=== PATIENT | female | born 1955 | race Caucasian/White ===

== ENCOUNTER 2020-12-11 22:40 | Emergency (ER) | payer MEDICARE, MEDICAID, SELFPAY ==
[2020-12-11 22:41] VITALS: BP 148/99; PULSE 79; RESP 15; TEMP 36.6; O2SAT 98; BMI 26.9
[2020-12-11 22:45] VITALS: BP 154/99; PULSE 76; RESP 15; O2SAT 98
--- NOTE | 2020-12-11 23:02 | RAD_ITS ---
STUDY: X-RAY - RIGHT FOOT CLINICAL: Female, 65 years old. injury TECHNIQUE: 3 view(s) of the foot. COMPARISON: None. FINDINGS: Acute transverse to minimally oblique fracture of the distal second metatarsal neck, mid diaphyses of the third metatarsals, of the fourth metatarsal is. Minimal irregularity along the proximal second and third metatarsals is indeterminate. The tarsometatarsal articulation appear maintained. There is adjacent soft tissue swelling. Normal talus, calcaneus, and tarsal bones. Normal visualized subtalar, talonavicular, calcaneocuboid, tarsal and tarsometatarsal articulations. Otherwise normal metatarsi. Normal metatarsophalangeal joint of the great toe. Normal tibial and fibular sesamoid bones. Normal interphalangeal joint of the great toe. Normal phalanges of the great toe. Normal second through fifth metatarsophalangeal joints. Normal interphalangeal joints and phalanges of the lesser toes. RAD/Foot min 3 Views IMPRESSION: Possible fractures as above with soft tissue swelling. No tarsometatarsal dissociation detected. Electronically Signed: Bhavya Yin MD at 1:03 EDT , Service support ,
--- NOTE | 2020-12-11 23:39 | ED.RN ---
call made to obtain consent by legal guardian. no answer. message left on voicemail. implied consent used to treat patient. emili richardson rn [id number]
--- NOTE | 2020-12-11 23:56 | ED.VIS.GEN ---
History of Present Illness Chief Complaint: Lower Extremity Injury Informant: Patient, - - F staff Onset: Today Narrative: Patient states she woke this morning with right foot pain and swelling. She does not remember specific injury. Reportedly patient had an x-ray done at the [facility] that revealed multiple fractures. - Past Medical History (1) Benign hypertension Status: Chronic (2) Bipolar disorder Status: Chronic (3) Depression Status: Chronic (4) Gastroesophageal reflux disease Status: Chronic (5) Hypothyroidism Status: Chronic (6) Schizophrenia Status: Chronic Past Medical History - Allergies and Home Meds Allergies/Adverse Reactions: Allergies chlordiazepoxide HCl [From Librium] Allergy (Verified 12/11/20 22:44) Unknown divalproex sodium [From Depakote] Allergy (Verified 12/11/20 22:44) Unknown lithium Allergy (Verified 12/11/20 22:44) Unknown Penicillins Allergy (Verified 12/11/20 22:44) Unknown sulfamethoxazole [From Bactrim] Allergy (Verified 12/11/20 22:44) PT UNSURE OF REACTION trimethoprim [From Bactrim] Allergy (Verified 12/11/20 22:44) PT UNSURE OF REACTION Primary Care Physician: Thee Hugo MD [Primary Care Provider] - Prior records reviewed: Yes Surgical History: THYROIDECTOMY Lives: Shelter Smoking Status: Never smoker Review of Systems General: Denies: Chills, Fever Eyes: Denies: Visual changes - bilaterally ENT: Denies: Bilateral ear pain Cardiovascular: Denies: Chest pain Respiratory: Denies: Dyspnea, Cough Gastrointestinal: Denies: Abdominal pain Musculoskeletal: Reports: Swelling, Extremity Pain Neurological: Denies: Parasthesia Hematologic: Denies: Easy bruising, Easy bleeding Allergy: Denies: Uticaria Physical Exam Vital Signs/Narrative: Vital Signs Temp Pulse Resp BP Pulse Ox 12/11/20 22:45 76 15 154/99 H 98 12/11/20 22:41 97.9 F 79 15 148/99 H 98 Inital Vital Signs reviewed: Yes General: Well nourished, Well developed Head: Normocephalic Neck: Supple Cardiovascular: Regular rate, Regular rhythm Respiratory: No distress, CTA bilaterally Abdomen: Soft, Nontender Extremities: - - Right foot edema with minimal erythema. Mild diffuse tenderness. No open wounds noted. Strong pulses. Neurological: Alert, Oriented x3 Psychological: Normal affect Diagnostic/Tx/Re-eval - Medical Decision Making Right foot x-rays were repeated here. Patient has fractures of the second, third, and fourth metatarsals. Images are reviewed with Dr. George, podiatry. Patient is placed in a large posterior splint and advised to be nonweightbearing. Staff at bedside is aware of the plan. ED Disposition - Plan for ED Patient: Disposition: Home or Assisted Living Diagnosis: Foot fracture, right Instructions: ED Fracture, Foot Referrals: Mattie George DPM [STAFF PHYSICIAN] - 2 Days
[2020-12-12 00:11] VITALS: BP 124/66; PULSE 72; RESP 15; O2SAT 96
== END 2020-12-12 00:42 | disposition home or self-care (01) ==
PROVIDERS: Emergency Provider Emergency Medicine; PCP Family Medicine
DX: S92.321A Displaced fracture of second metatarsal bone, right foot, initial encounter for closed fracture (principal); S92.331A Displaced fracture of third metatarsal bone, right foot, initial encounter for closed fracture; S92.341A Displaced fracture of fourth metatarsal bone, right foot, initial encounter for closed fracture; X58.XXXA Exposure to other specified factors, initial encounter; Y93.9 Activity, unspecified; Y92.9 Unspecified place or not applicable; I10 Essential (primary) hypertension; E03.9 Hypothyroidism, unspecified; F20.9 Schizophrenia, unspecified; F31.9 Bipolar disorder, unspecified; K21.9 Gastro-esophageal reflux disease without esophagitis; Z79.899 Other long term (current) drug therapy
CPT/HCPCS: 29515; 73630; 99284

== ENCOUNTER → 2024-06-25 | Outpatient (CLI) | payer MEDICARE, MEDICAID, SELFPAY ==
[2024-07-01 01:07] LABS: Pancreatic Elastase, Fecal > 800 (>200)
[2024-07-02 08:13] LABS: Calprotectin, Stool 336 ug/g (0-120)
== END | disposition home or self-care (01) ==
LOC: LABSPEC 15:57
PROVIDERS: Student in an Organized Health Care Education/Training Program; PCP Family Medicine; Referring Provider Family Medicine; Visit Provider Family Medicine
DX: R11.2 Nausea with vomiting, unspecified (principal); R19.7 Diarrhea, unspecified
CPT/HCPCS: 82653; 83630; 83993

== ENCOUNTER → 2024-07-03 | Outpatient (CLI) | payer MEDICARE, MEDICAID, SELFPAY | END | disposition home or self-care (01) | LOC: RAD 08:45 | PROVIDERS: PCP Family Medicine; Referring Provider Student in an Organized Health Care Education/Training Program; Visit Provider Student in an Organized Health Care Education/Training Program | DX: R13.10 Dysphagia, unspecified (principal) | CPT/HCPCS: 74221 ==

== ENCOUNTER 2025-04-20 08:27 | Day surgery (SDC) | payer MEDICARE, MEDICAID, SELFPAY ==
--- NOTE | 2025-02-20 09:40 | PAT.ANE_ITS ---
Pre-Assessment Diagnosis/Proposed Procedure Planned Operative Procedure(s): COLONOSCOPY Anesthesia History Anesthesia History - collection specialist: Anesthesia History - collection specialist Hx Hospitalization No 02/20/25 08:08 Any Problems With Anesthesia No 02/20/25 08:08 Cholinesterase deficiency No 02/20/25 08:08 You/Your Family Experience No 02/20/25 08:08 fever (hyperthermia) with Relationship Recent Exposure to Contagious Disease Does patient have nerve No 02/20/25 08:08 stimulator Patient instructed to have device shut off --Does patient have Pacemaker or ICD? When Was Last Pacemaker Check QUESTION #4 FULL TEXT: You/Your Family Experience fever (hyperthermia) with Anesthesia Last Oral Intake Last Oral intake: Last Oral Intake NPO since Meds taken in AM with sips of water? Meds patient instructed to take am of surgery PONV PONV - collection specialist: PONV - collection specialist Female Yes 02/20/25 08:08 HX of Motion Sickness No 02/20/25 08:08 HX of N/V After Surgery No 02/20/25 08:08 Non-Smoker Yes 02/20/25 08:08 Duration of Surgery greater No 02/20/25 08:08 than 60 minutes Number of Risk Factors 2 02/20/25 08:08 PONV Score Moderate Risk 02/20/25 08:08 Respiratory Assessment Respiratory Assessment - collection specialist: Respiratory Tract Infection Hx - collection specialist Hx Respiratory Tract Infection No 02/20/25 08:08 STOP Sleep Apnea STOP Sleep Apnea - collection specialist: STOP Sleep Apnea - collection specialist Hx Hypertension No 02/20/25 08:08 Hx Sleep Apnea No 02/20/25 08:08 CPAP No 02/20/25 08:08 BIPAP No 02/20/25 08:08 Do you snore loudly (louder No 02/20/25 08:08 than talking or can be heard Do you often feel tired/ No 02/20/25 08:08 fatigued/ sleepy during daytime? Has anyone observed you stop No 02/20/25 08:08 breathing during sleep? STOP Results Negative 02/20/25 08:08 QUESTION #5 FULL TEXT : Do you snore loudly (louder than talking or can be heard through closed doors)? 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 Specify any problems Hx of Preganancy in last 3 No 02/20/25 08:08 Months Nurse Filling Out Transfusion DSCHRIBER 02/20/25 08:08 & Questions: Date: 02/20/25 02/20/25 08:08 Time: 08:14 02/20/25 08:08 Patient unable to answer at this time (ie. confused, unrespo /Reproduction History /Reproductive History - collection specialist: /Reproductive Hx- collection specialist Hx Now No 02/20/25 08:08 Gestational Age (in weeks): EDC: Hx Hx Para Hx Section SAB No 02/20/25 08:08 PFSH Medical History Arthritis Uses wheelchair Chronic pain Gastroparesis Migraine headache PVD (peripheral vascular disease) Injury of head and neck History of IBS Gastric reflux Non-smoker COPD (chronic obstructive pulmonary disease) Diabetes AD (Alzheimer's disease) Depression Anxiety Bipolar disorder Schizophrenia Alert and oriented Lives in [facility] Home Medications ?Medication ?Instructions ?Recorded ?Last Taken ?Type aspirin 81 mg chewable tablet 81 mg PO DAILY@0800 10/25 11/09 Unknown History Held on 02/20/25. Instructions: Ordered atorvastatin 20 mg tablet 20 mg PO QHS 11/07/15 Unknow n History duloxetine 60 mg capsule,delayed 60 mg PO QHS 11/07/15 Unknown History release ergocalciferol (vitamin D2) 1,250 50,000 unit PO WE Unknown History mcg (50,000 unit) capsule (Vitamin D2) lamotrigine 100 mg tablet 100 mg PO BID 11/07/15 Unkno wn History acetaminophen 650 mg 650 mg PO Q4H PRN PRN Pain 0 05/13/16 Unknown History tablet,extended release (Tylenol Arthritis Pain) bisacodyl 10 mg rectal suppository 10 mg RECTAL DAILY PRN PRN 05/13/16 Unknown History Constipation bisacodyl 5 mg tablet,delayed 5 mg PO DAILY CONSTIPATI ON 05/13/16 Unknown History release magnesium hydroxide 400 mg/5 mL 30 ml PO DAILY PRN PRN Constipation 05/13/16 Unknown History oral suspension amantadine HCl 100 mg tablet 100 mg PO BID 06/17/24 Un known History calcium polycarbophil 625 mg 625 mg PO QDAY 06/17/24 U nknown History tablet (FiberCon) Held on 02/20/25. Instructions: MD Ordered clozapine 100 mg tablet 100 mg PO HS 06/17/24 Unknow n History clozapine 50 mg tablet (Clozaril) 50 mg PO QAM 4 Unknown History d-mannose 500 mg capsule (AZO 600 mg PO DAILY 06/17/24 Unknown History D-Mannose) acetaminophen 325 mg tablet 650 mg PO Q6H 02/20/25 Unk nown History (Tactinal) clonazepam 0.5 mg tablet 0.5 mg PO TID 02/20/25 Unkno wn History nystatin-triamcinolone 100,000 1 applic topical Q12H P RN PRN 02/20/25 Unknown Hi story unit/g-0.1 % topical cream UNDER BREASTS olanzapine 15 mg tablet 15 mg PO QHS 02/20/25 Unknow n History ondansetron HCl 4 mg tablet 4 mg PO Q6H PRN PRN nausea and 02/20/25 Unknown H istory vomiting pantoprazole 40 mg tablet,delayed 40 mg PO DAILY 02/20 Unknown History release sennosides 8.6 mg-docusate sodium 2 tab-cap PO BID Unknown History 50 mg tablet (Senna Plus) sumatriptan succinate 25 mg tablet 50 mg PO Q2H PRN mi graine headache 02/20/25 Unknown History Allergy/AdvReac Type Severity Reaction Status Date / Time chlordiazepoxide HCl (From Allergy Unknown Verified 02/20/25 08:00 Librium) divalproex sodium (From Allergy Unknown Verified 02/20/25 08:00 Depakote) lithium Allergy Unknown Verified 02/20/25 08:00 Penicillins Allergy Unknown Verified 02/20/25 08:00 sulfamethoxazole (From Allergy PT UNSURE Verified 02/20/25 08:00 Bactrim) OF REACTION trimethoprim (From Bactrim) Allergy PT UNSURE Verified 02/20/25 08:00 OF REACTION Social History Smoking Status: Never smoker Recommendation Anesthesia Recommendation Anesthesia recommendation: F/U recommended (Unable to interpret EKG. Please repeat EKG on arrival.)
[2025-04-20] VITALS (8 sets, daily range): BP systolic 119–129; BP diastolic 58–91; PULSE 70–80; RESP 14–16; TEMP 36.1–36.5; O2SAT 94–100; BMI 31.5
--- NOTE | 2025-04-20 09:12 | PCM.HP.STD ---
HPI - General General Date of Admission: 04/20/25 Date of Service: 04/20/25 Chief Complaint: Diarrhea HPI Narrative ALEXUS PINTO, is a 69 F who presents w/ complaints of dysphagia for years and diarrhea. SHe is an unreliable historian. *discontinue senna and lactulose *Continue miralax and fiber Barium esophagram 11..24; normal OV 1..25 Pt presents here today for f/u. SHe is with [facility]. I am unable to get a clear hx from her and her mobile lounge driver is not familiar with her. SHe tells me she is not going to the bathroom as the toilets are talking to her and scaring her. She denies abd pain, diarrhea, n/v or heatburn. Calprotectin, Stool Today R19.7 - Diarrhea, unspecified PFSH Medical History Arthritis Uses wheelchair Chronic pain Gastroparesis Migraine headache PVD (peripheral vascular disease) Injury of head and neck History of IBS Gastric reflux Non-smoker COPD (chronic obstructive pulmonary disease) Diabetes AD (Alzheimer's disease) Depression Anxiety Bipolar disorder Schizophrenia Alert and oriented [facility] in [facility] Home Medications ?Medication ?Instructions ?Recorded ?Last Taken ?Type aspirin 81 mg chewable tablet 81 mg PO DAILY@0800 11/07/15 Unknown History Held on 02/20/25. Instructions: Ordered atorvastatin 20 mg tablet 20 mg PO QHS 11/07/15 Unknown History duloxetine 60 mg capsule,delayed 60 mg PO QHS 11/07/15 04/19/25 History release ergocalciferol (vitamin D2) 1,250 50,000 unit PO WE 11/07/15 Unknown History mcg (50,000 unit) capsule (Vitamin D2) lamotrigine 100 mg tablet 100 mg PO BID 11/07/15 04/20/25 History acetaminophen 650 mg 650 mg PO Q4H PRN PRN Pain 05/13/16 Unknown History tablet,extended release (Tylenol Arthritis Pain) bisacodyl 10 mg rectal suppository 10 mg RECTAL DAILY PRN PRN 05/13/16 Unknown History Constipation bisacodyl 5 mg tablet,delayed 5 mg PO DAILY CONSTIPATION 05/13/16 Unknown History release magnesium hydroxide 400 mg/5 mL 30 ml PO DAILY PRN PRN Constipation 05/13/16 Unknown History oral suspension amantadine HCl 100 mg tablet 100 mg PO BID 06/17/24 04/20/25 History calcium polycarbophil 625 mg 625 mg PO QDAY 06/17/24 Unknown History tablet (FiberCon) Held on 02/20/25. Instructions: MD Ordered clozapine 100 mg tablet 100 mg PO HS 06/17/24 04/19/25 History clozapine 50 mg tablet (Clozaril) 50 mg PO QAM 06/17/24 04/20/25 History d-mannose 500 mg capsule (AZO 600 mg PO DAILY 06/17/24 04/20/25 History D-Mannose) acetaminophen 325 mg tablet 650 mg PO Q6H 02/20/25 04/20/25 History (Tactinal) clonazepam 0.5 mg tablet 0.5 mg PO TID 02/20/25 04/20/25 History nystatin-triamcinolone 100,000 1 applic topical Q12H PRN PRN 02/20/25 Unknown History unit/g-0.1 % topical cream UNDER BREASTS olanzapine 15 mg tablet 15 mg PO QHS 02/20/25 04/19/25 History ondansetron HCl 4 mg tablet 4 mg PO Q6H PRN PRN nausea and 02/20/25 Unknown History vomiting pantoprazole 40 mg tablet,delayed 40 mg PO DAILY 02/20/25 04/20/25 History release sennosides 8.6 mg-docusate sodium 2 tab-cap PO BID 02/20/25 Unknown History 50 mg tablet (Senna Plus) sumatriptan succinate 25 mg tablet 50 mg PO Q2H PRN migraine headache 02/20/25 Unknown History Allergy/AdvReac Type Severity Reaction Status Date / Time chlordiazepoxide HCl (From Allergy Unknown Verified 04/20/25 09:00 Librium) divalproex sodium (From Allergy Unknown Verified 04/20/25 09:00 Depakote) lithium Allergy Unknown Verified 04/20/25 09:00 Penicillins Allergy Unknown Verified 04/20/25 09:00 sulfamethoxazole (From Allergy PT UNSURE Verified 04/20/25 09:00 Bactrim) OF REACTION trimethoprim (From Bactrim) Allergy PT UNSURE Verified 04/20/25 09:00 OF REACTION Social History Smoking Status: Never smoker ROS Constitutional Constitutional: Denies fatigue, fever(s), poor appetite, weight gain or weight loss Gastrointestinal Gastrointestinal: Denies belching, bloating, change in bowel habits, change in stool character, chewing difficulty, coffee ground emesis, constipation, cramping, diarrhea, dyspepsia, dysphagia, early satiety, excessive flatus, fecal incontinence, heartburn, hematemesis, hematochezia, hemorrhoids, loose stools, melena, nausea, odynophagia, rectal bleeding, tenesmus, vomiting or weight changes Vital Signs Vital Signs Vital Signs: 04/20/25 08:51 04/20/25 08:51 Temperature 97.7 F L Temperature Source Temporal Pulse Rate 80 Respiratory Rate 14 Respiratory Pattern Normal Blood Pressure 119/91 H Blood Pressure Mean 100 Blood Pressure Source Monitor Blood Pressure Position Semi-Fowlers Blood Pressure Location Left Arm Pulse Ox 94 Oxygen Delivery Method Room Air Weight Weight: 207 lb 3.752 oz Body Mass Index (BMI) 31.5 Physical Exam Const alert, oriented x3, no apparent distress and healthy appearing General Appearance: cooperative GI normal to inspection, nondistended, normoactive bowel sounds, soft to palpation, non-tender and non-distended Percussion: normal to percussion Rectal Exam: deferred Assessment & Plan Assessment/Plan (1) Diarrhea: (2) Gastroesophageal reflux disease: (3) Dysphagia: PLAN: Assessment and Plan Assessment and Plan (1) Abdominal symptoms: Status: Acute Plan: This is a 68 yo female pt with PMHx of schizophrenia, GERD, diarrhea, hypothyroidism and depression. SHe is here today for f/u. Barium esophagram was normal. Stool testing showing a high calprotectin. Pt is an unreliable historian and is unable to answer any of my questions regarding her GI symptoms. Will recheck her calprotectin. Continue current medications. Will call pt nurse at the [facility] to get a clear history. -Call pt nurse -Re check stool calprotectin -Continue current medications -F/u as needed Orders: Orders
[2025-04-20] MEDS: Lactated Ringers 1,000 ML 15 ML IV (09:14)
--- NOTE | 2025-04-20 09:18 | SUR.PREOP ---
DAINA WELCH ENDO CHARGE NURSE WAS ASKED BY THIS NURSE IF PATIENT WOULD NEED ENEMAS FROM DARK YELLOW LIQUID STOOL WITH SOME BROWN. SHE SAID NO PATIENT WOULD NOT BE ABLE TO HOLD THE WATER D/T CONFUSION.
--- OUTSIDE RECORDS SUMMARY | 2025-04-20 09:26 | XMS RPT_ITS | CCD ---
Author Organization [facility] Care Team Providers Care Film Vault Supervisor Name Role Phone PRISCILLA APODACA, DR SILVA S Primary Care Physician [phone] SHIRA WELLS Primary Care Unavailable LUCIANA UNDERWOOD DO Attending Unavailable STEPHY ABAD Unavailable Aminta Bedolla Attending Unavailable Aminta Bedolla Referring Unavailable Shira Wells Primary Care Unavailable Shira Wells Primary Care Unavailable Shira Wells Attending Unavailable Shira Wells Referring Unavailable Suresh Jolly Attending Unavailable Shira Wells Primary Care Unavailable Shira Wells Referring Unavailable Aminta Bedolla Attending Unavailable Shira Wells Primary Care Unavailable Shira Wells Primary Care Unavailable Aminta Bedolla Attending Unavailable Shira Wells Referring Unavailable Allergies Allergy Classification Reported Allergen(s) Allergy Type Date of Onset Reaction(s) Facility (1 source) chlordiazePOXIDE; Translations: [chlordiazepoxide] Drug Allergy [facility] (1 source) [place]; Translations: [lithium] Drug Allergy [facility] (1 source) Penicillin; Translations: [penicillin] Drug Allergy [facility] (1 source) Sulfamethoxazole / Trimethoprim; Translations: [sulfamethoxazole-tr imethoprim] Drug Allergy [facility] (1 source) Valproate; Translations: [divalproex sodium] Drug Allergy [facility] (1 source) chlordiazePOXIDE Drug Allergy [facility] (1 source) [place] Drug Allergy [facility] (1 source) Penicillins Drug allergy (disorder) [facility] (1 source) Sulfamethoxazole Drug Allergy [facility] (1 source) Trimethoprim Drug Allergy [facility] (1 source) Valproate Drug Allergy [facility] Problems Problem Classification Problem Date Documented Da te Episodic/Chronic Nausea and vomiting (1 source) Nausea with vomiting, unspecified; Translations: [Nausea with vomiting, unspecified] Onset: 08-04-2024 Episodic Other gastrointestinal disorders (1 source) Dysphagia, unspecified; Translations: [Dysphagia, unspecified] Onset: 08-04-2024 Episodic Other gastrointestinal disorders (1 source) Diarrhea, unspecified; Translations: [Diarrhea, unspecified] Onset: 07-18-2024 Episodic Results Test Name Value Interpretation Reference Range Facility MR/PAT.[facility] 02-20-2025 MR/PAT.[facility] Medical Records Department [address] [place] [address] PAT - Anesthesia 02/20/25 0940 MR#: [id number] Acct: [id number] Name: NINFA AIKEN Rep #: [id number] : 1955 69 From: Brian Mendes MD PCP: Dr. Shira Wells MD [place] [facility]: C Location: EN Pre-Assessment Diagnosis/Proposed Procedure Planned Operative Procedure(s): COLONOSCOPY Anesthesia History Anesthesia History - watch mechanic: Anesthesia History - watch mechanic Hx Hospitalization No 02/20/25 08:08 Any Problems With Anesthesia No 02/20/25 08:08 Cholinesterase deficiency No 02/20/25 08:08 You/Your Family Experience No 02/20/25 08:08 fever (hyperthermia) with Relationship Recent Exposure to Contagious Disease Does patient have nerve No 02/20/25 08:08 stimulator Patient instructed to have device shut off --Does patient have Pacemaker or ICD? When Was Last Pacemaker Check QUESTION #4 FULL TEXT: You/Your Family Experience fever (hyperthermia) with Anesthesia Last Oral Intake Last Oral intake: Last Oral Intake NPO since Meds taken in AM with sips of water? Meds patient instructed to take am of surgery PONV PONV - watch mechanic: PONV - watch mechanic Female Yes 02/20/25 08:08 HX of Motion Sickness No 02/20/25 08:08 HX of N/V After Surgery No 02/20/25 08:08 Non-Smoker Yes 02/20/25 08:08 Duration of Surgery greater No 02/20/25 08:08 than 60 minutes Number of Risk Factors 2 02/20/25 08:08 PONV Score Moderate Risk 02/20/25 08:08 Respiratory Assessment Respiratory Assessment - watch mechanic: Respiratory Tract Infection Hx - watch mechanic Hx Respiratory Tract Infection No 02/20/25 08:08 STOP Sleep Apnea STOP Sleep Apnea - watch mechanic: STOP Sleep Apnea - watch mechanic Hx Hypertension No 02/20/25 08:08 Hx Sleep Apnea No 02/20/25 08:08 CPAP No 02/20/25 08:08 BIPAP No 02/20/25 08:08 Do you snore loudly (louder No 02/20/25 08:08 than talking or can be heard Do you often feel tired/ No 02/20/25 08:08 fatigued/ sleepy during daytime? Has anyone observed you stop No 02/20/25 08:08 breathing during sleep? STOP Results Negative 02/20/25 08:08 QUESTION #5 FULL TEXT : Do you snore loudly (louder than talking or can be heard through closed doors)? Tobacco Use History Tobacco Use History - watch mechanic: Tobacco Use History - watch mechanic Tobacco Use Smoking Status Never smoker 02/20/25 08:08 Hx Tobacco Use No 02/20/25 08:08 Years Smoking Packs Smoked per Day Smoking Cessation Date was within the last 15 years Hx Smoking Cessation Date Hx Smoking Cessation Counseling Hematologic Medial History Hematologic Hx - watch mechanic: Hematologic Medical Hx - organ recovery coordinator Hx of Blood Transfusion No 02/20/25 08:08 Hx of Transfusion in last 3 No 02/20/25 08:08 Months Date of Last Transfusion (if within last 3 months) Ever experience any problems No 02/20/25 08:08 with transfusion(s)? Specify any problems Hx of Preganancy in last 3 No 02/20/25 08:08 Months Nurse Filling Out Transfusion DSCHRIBER 02/20/25 08:08 Questions: Date: 02/20/25 02/20/25 08:08 Time: 08:14 02/20/25 08:08 Patient unable to answer at this time (ie. confused, unrespo /Reproduction History /Reproductive History - watch mechanic: /Reproductive Hx- watch mechanic Hx Now No 02/20/25 08:08 Gestational Age (in weeks): EDC: Hx Hx Para Hx Section SAB No 02/20/25 08:08 PFSH Medical History Arthritis Uses wheelchair Chronic pain Gastroparesis Migraine headache PVD (peripheral vascular disease) Injury of head and neck History of IBS Gastric reflux Non-smoker COPD (chronic obstructive pulmonary disease) Diabetes AD (Alzheimer's disease) Depression Anxiety Bipolar disorder Schizophrenia Alert and oriented Lives in [facility] Home Medications ???Medication ???Instructions ???Recorded ???Last Taken ???Type aspirin 81 mg chewable tablet 81 mg PO DAILY@0800 11/07/15 Unkno wn History Held on 02/20/25. Instructions: MD Ordered atorvastatin 20 mg tablet 20 mg PO QHS 11/07/15 Unknown Hist ory duloxetine 60 mg capsule,delayed 60 mg PO QHS 11/07/15 Unknown Hist ory release ergocalciferol (vitamin D2) 1,250 50,000 unit PO WE 11/07/15 Unknow n History mcg (50,000 unit) capsule (Vitamin D2) lamotrigine 100 mg tablet 100 mg PO BID 11/07/15 Unknown His tory acetaminophen 650 mg 650 mg PO Q4H PRN PRN Pain 6 Unknown History tablet,extended release (Tylenol (more content not included)... [facility] Gastroenterology Visit Repor ton 09-19-2024 Gastroenterology Visit Report [facility] Gastroenterology [address] [place] [address] OFFICE VISIT Date of Service: 09/19/24 MR#: [id number] Acct: [id number] Name: NINFA AIKEN Rep #: [id number] : 1955 Provider: RAMESH Abbott Age/Sex: 68/F Location: [facility] [place] Status: Signed Intake Vital Signs 12/11/20 22:41 Height 5 ft 8 in Intake Visit Reasons: 3 M FU Chief Complaint: f/u n/v Is patient in pain?: No Allergies chlordiazepoxide HCl (From Librium) Allergy (Verified 06/17/24 10:47) Unknown divalproex sodium (From Depakote) Allergy (Verified 06/17/24 10:47) Unknown lithium Allergy (Verified 06/17/24 10:47) Unknown Penicillins Allergy (Verified 06/17/24 10:47) Unknown sulfamethoxazole (From Bactrim) Allergy (Verified 06/17/24 10:47) PT UNSURE OF REACTION trimethoprim (From Bactrim) Allergy (Verified 06/17/24 10:47) PT UNSURE OF REACTION Have you fallen in the past year?: Yes Nurse's Note: OV 09.19.24 Pt here for f/u. Pt c/o abdominal pain, diarrhea and nausea. PFSH Social History Smoking Status: Never smoker HPI HPI Chief Complaint: f/u n/v Details: NINFA AIKEN, is a 68 F who presents to the office today for f/u. [facility] established 06.17.24 w/ complaints of dysphagia for years and diarrhea. SHe is an unreliable historian. *discontinue senna and lactulose *Continue miralax and fiber Barium esophagram 07.03.24; normal OV 09.19.24 Pt presents here today for f/u. SHe is with her dray driver from the [facility]. I am unable to get a clear hx from her and her dray driver is not familiar with her. SHe tells me she is not going to the bathroom as the toilets are talking to her and scaring her. She denies abd pain, diarrhea, n/v or heatburn. ROS Const Constitutional: No anorexia, fatigue, fever(s), weight change or sleep problems Eyes Eyes: No change in vision ENT ENT: No abnormal hearing, difficulty swallowing, mouth lesions, tongue swelling or throat swelling Resp Respiratory: No cough or shortness of breath Cardio Cardiology: No chest pain at rest, chest pain with exertion, shortness of breath or dyspnea on exertion Gastro GI: No difficulty swallowing Genitourinary-Female: No difficulty urinating or burning urination Musc Musculoskeletal: No joint pain, joint swelling, muscle weakness or decreased muscle mass Skin Skin: No hair loss in leg, yellowing of the eye, itchy eyes, rash, skin ulcer or skin swelling Neuro Neurology: No abnormal hearing, abnormal movements, confusion, unsteady gait/balance or memory loss Psych Psychiatric: No anxiety, No confusion and No memory loss Endo Endocrine: No fatigue or weight change Aller/Imm Allergy/Immunologic: No itchy eyes, throat swelling or tongue swelling Edgard/Lymp Hematologic/Lymphatic: No easy bleeding, easy bruising or enlarged lymph nodes Exam Const General: cooperative and comfortable Nutritional Appearance: average body habitus and well nourished HENMT Head: normal to inspection Ears: hearing grossly normal bilaterally Nose: external nose normal Face and sinus: normal facial exam Mouth: oral mucosae normal Throat: posterior oropharynx normal Eyes General: appearance normal, both eyes and all related structures Neck Neck: normal visual inspection Chest Chest palpation inspection: normal inspection of the chest and normal palpation of entire chest wall Resp Effort Inspection: normal respiratory effort Auscultation: Bilateral: Clear to Auscultation Cardio Palpation: normal PMI Rate: regular rate Rhythm: regular rhythm GI Inspection: normal to inspection Auscultation: normal bowel sounds Percussion: normal to percussion Palpation: no hepatosplenomegaly Skin General: no rashes or lesions noted Neuro General: patient alert Extrem General: normal to inspection Psych Affect: normal affect Assessment and Plan Assessment and Plan (1) Abdominal symptoms: Status: Acute Plan: This is a 68 yo female pt with PMHx of schizophrenia, GERD, diarrhea, hypothyroidism and depression. SHe is here today for f/u. Barium esophagram was normal. Stool testing showing a high calprotectin. Pt is an unreliable historian and is unable to answer any of my questions regarding her GI symptoms. Will recheck her calprotectin. Continue current medications. Will call pt nurse at the [facility] to get a clear history. -Call pt nurse -Re check stool calprotectin -Continue current medications -F/u as needed Orders: Orders Calprotectin, Stool Today R19.7 - Diarrhea, unspecified Coding Level of Care Code Off vis,est,level 3 Diagnoses Abdominal symptoms R19.8 Clinical Quality Measures Falls Risk Screening/Assistive Devices Have you fallen in the past year?: Yes 09/19/24 1139 Date ____ (more content not included)... [facility] Esophagus Dual Contraston Esophagus Dual Contrast [facility] Imaging Services [address] [place] [address] Esophagus Dual Contrast MR#: [id number] Acct: [id number] Name: NINFA AIKEN Rep #: [id number] : 1955 F 68 From: Ricardo salazar MD PCP: Dr. Shira Wells MD Status: REG CLI Study: Esophagus Dual Contrast Date of Exam: 07/03/24 Exam# [id number] Ordering Dr: Aminta Bedolla [id number] STUDY: X-RAY - ESOPHAGUS (BARIUM SWALLOW) WITH FLUOROSCOPY REASON FOR EXAM: Female, 68 years old. Dysphagia TECHNIQUE: 53 fluoroscopic view(s) of the esophagus were obtained following swallowing of barium. FLUOROSCOPY TIME (if supplied): (36 seconds) minutes/seconds. 6 mGy. COMPARISON: None. FINDINGS: There is no demonstrated esophageal foreign body. There is no demonstrated stricture or mucosal abnormality. Normal gastroesophageal junction, without a demonstrated hiatal hernia. The patient ingested a 12 mm tablet of barium without any difficulty. There is atherosclerotic tortuosity of the aortic arch and descending thoracic aorta. Normal visualized pulmonary parenchyma. There are diffuse degenerative changes of the visualized thoracic spine. RAD/Esophagus Dual Contrast IMPRESSION: Normal plain film x-ray examination (barium swallow) of the esophagus. Electronically Signed: Ricardo Goff MD at 10:07 EST , CC: Dr. Shira Wells MD; RAMESH Abbott Letter Carrier: Signed [facility] Calprotectin, Stoolon [address] 336 ug/g Abnormal 0-120 [facility] Comment on above: Result Comment: Conc entration Interpretation Follow-Up < 5 - 50 ug/g Normal None >50 -120 ug/g Borderline Re-evaluate in 4-6 weeks >120 ug/g Abnormal Repeat as clinically indicated Performed at: [address] [id number] Batch Tester: Dot Clifton MD, Phone: [phone] Performed By: #### L 7000.0700, M100.0605, L7000.0750 #### [facility] [address] [place], [address] L7000.0750on 07-01-2024 P ELASTASE,FECA > 800 Normal >200 [facility] Comment on above: Result Comment: Resu lt Units: ug Elast./g Severe Pancreatic Insufficiency: <100 Moderate Pancreatic Insufficiency: 100 - 200 Normal: >200 Performed at: [address] [id number] Batch Tester: Dot Clifton MD, Phone: [phone] Performed By: #### L 7000.0700, M100.0605, L7000.0750 #### [facility] [address] [place], [address] Stool Lactoferrin/WBCon 05-29 WBCST Normal Reference Ran ge = Negative Fecal WBC Lactoferrin Negative: No Fecal WBC Lactoferrin present Normal [facility] Comment on above: Performed By: #### L 7000.0700, M100.0605, L7000.0750 #### [facility] [address] [place], [address] Gastroenterology Visit Repor ton 06-17-2024 Gastroenterology Visit Report [facility] Gastroenterology [address] [place] [address] OFFICE VISIT Date of Service: 06/17/24 MR#: [id number] Acct: [id number] Name: NINFA AIKEN Rep #: [id number] : 1955 Provider: RAMESH Abbott Age/Sex: 68/F Location: [facility] [place] Status: Signed Intake Vital Signs 12/11/20 22:41 Height 5 ft 8 in Intake Visit Reasons: Nausea/vomiting Chief Complaint: dysphagia, diarrhea, abdominal pain Drapery Hanger Required: No Accompanied by: Caregiver Allergies chlordiazepoxide HCl (From Librium) Allergy (Verified 06/17/24 10:47) Unknown divalproex sodium (From Depakote) Allergy (Verified 06/17/24 10:47) Unknown lithium Allergy (Verified 06/17/24 10:47) Unknown Penicillins Allergy (Verified 06/17/24 10:47) Unknown sulfamethoxazole (From Bactrim) Allergy (Verified 06/17/24 10:47) PT UNSURE OF REACTION trimethoprim (From Bactrim) Allergy (Verified 06/17/24 10:47) PT UNSURE OF REACTION Medications ???Medication ???Instructions ???Recorded ???Confirmed ???Type Nuedexta 1 tab PO DAILY 11/07/15 11/07/15 History alprazolam 0.5 mg tablet 0.5 mg PO TID 11/07/15 11/07/15 History aspirin 81 mg chewable tablet 81 mg PO DAILY@0800 11/07/15 06/17/24 History atorvastatin 20 mg tablet 20 mg PO QHS 11/07/15 05/13/16 History benztropine 2 mg tablet 1 mg PO TID 11/07/15 05/13/16 History carbamazepine 200 mg tablet 200 mg PO DAILY 11/07/15 11/07/15 History (Tegretol) cephalexin 500 mg capsule 500 mg PO Q6 ##40 11/07/15 Rx docusate sodium 100 mg capsule 200 mg PO BID 11/07/15 05/13/16 History (DOK) duloxetine 60 mg capsule,delayed 60 mg PO BID 11/07/15 06/17/24 History release ergocalciferol (vitamin D2) 1,250 50,000 unit PO Q7D 11/07/15 11/07/15 History mcg (50,000 unit) capsule (Vitamin D2) lamotrigine 100 mg tablet 100 mg PO BID 11/07/15 05/13/16 History multivitamin-minerals- lutein 1 ea PO DAILY 11/07/15 05/13/16 History tablet (Multivitamin 50 Plus tablet) olanzapine 10 mg tablet 5 mg PO Q6H PRN Agitation 11/07/15 11/07/15 History acetaminophen 650 mg 650 mg PO Q4H PRN PRN Pain 05/13/16 06/17/24 History tablet,extended release (Tylenol Arthritis Pain) bisacodyl 10 mg rectal suppository 10 mg RECTAL DAILY PRN PRN 05/13/16 06/17/24 History Constipation bisacodyl 5 mg tablet,delayed 5 mg PO DAILY CONSTIPATION 05/13/16 05/13/16 History release carbamazepine 200 mg tablet 200 mg PO DAILY 05/13/16 05/13/16 History cyclobenzaprine 10 mg tablet 10 mg PO QHS PRN PRN Pain 05/13/16 05/13/16 History diphenhydramine HCl 25 mg capsule 25 mg PO Q6H PRN PRN Rash/Topical 05/13/16 05/13/16 History (Banophen) Irritation ferrous sulfate 325 mg (65 mg 325 mg PO DAILY@0800 ANEMIA 05/13/16 05/13/16 History iron) tablet fluticasone propionate 50 1 spray DAILY PRN Allergies 05/13/16 05/13/16 History mcg/actuation nasal spray,suspension guaifenesin 400 mg tablet (Tab 400 mg PO Q8H PRN PRN Cold Symptons 05/13/16 05/13/16 History Tussin) hydrocodone-acetaminop hen 5-325mg 1 tab PO TID 05/13/16 05/13/16 History 5mg-325mg ibuprofen 400 mg tablet 400 mg PO BID PRN PRN Pain 05/13/16 05/13/16 History loratadine 10 mg tablet (Allergy 10 mg PO DAILY PRN Allergies 05/13/16 05/13/16 History Relief (loratadine)) magnesium hydroxide 400 mg/5 mL 30 ml PO DAILY PRN PRN Constipation 05/13/16 05/13/16 History oral suspension olanzapine 7.5 mg tablet (Zyprexa) 7.5 mg PO BID 05/13/16 05/13/16 History amantadine HCl 100 mg tablet 100 mg PO BID 06/17/24 06/17/24 History calcium polycarbophil 625 mg 625 mg PO QDAY 06/17/24 06/17/24 History tablet (FiberCon) clozapine 100 mg tablet 100 mg PO HS 06/17/24 06/17/24 History clozapine 50 mg tablet (Clozaril) 50 mg PO QAM 06/17/24 06/17/24 History d-mannose 500 mg capsule (AZO mg PO .QD 06/17/24 06/17/24 History D-Mannose) duloxetine 60 mg capsule,delayed 60 mg PO QHS 06/17/24 06/17/24 History release (Cymbalta) Have you fallen in the past year?: Yes Nurse's Note: spicy foods make is happen. This happens about every other day after she eats. She feels it burn all the way down. Has diarrhea and constipation regularly. PFSH Social History Smoking Status: Never smoker HPI HPI Chief Complaint: dysphagia, diarrhea, abdominal pain Details: NINAF AIKEN, is a 68 F who presents to the office today for establishment with [facility]. Pt is a resident at [facility] and is brought in with her WASHING MACHINE LOADER AND PULLER. She is not a reliable historian. She tells me she has had problems with swallowing for years now with dysphagia to both solids and liquids. She vomits at least once a week after eating. She also has heartburn. She tells me that Protonix has been helpful. SHe has never had an EGD to assess this. She also has complaints of daily d (more content not included)... Normal [facility] .Auto Diffon 04-07-2023 Basophil, Absolute 0.0 10 3/mcL Normal 0.0-0.2 [facility] ([place]) Comment on above: Performed By: #### M DW, CBC, GFR, TROPHS, CMP, LIP, ANEU, ADIFF #### [address] [address] Basophils/100 WBC (Bld) 0.3 % Normal 0.0-2.5 [facility] ([place]) Comment on above: Performed By: #### M DW, CBC, GFR, TROPHS, CMP, LIP, ANEU, ADIFF #### [place] [address] [place], [place] [address] Eosinophil, Absolute 0.1 10 3/mcL Normal 0.0-0.4 [facility] ([place]) Comment on above: Performed By: #### M DW, CBC, GFR, TROPHS, CMP, LIP, ANEU, ADIFF #### [address] [address] Eosinophils/100 WBC (Bld) 0.9 % Normal 0.0-7.0 [facility] ([place]) Comment on above: Performed By: #### M DW, CBC, GFR, TROPHS, CMP, LIP, ANEU, ADIFF #### [address] [address] Lymphocyte, Absolute 1.2 10 3/mcL Normal 0.8-3.9 [facility] ([place]) Comment on above: Performed By: #### M DW, CBC, GFR, TROPHS, CMP, LIP, ANEU, ADIFF #### [address] [address] Lymphocytes/100 WBC (Bld) 18.9 % Normal 10.0-50.0 [facility] ([place]) Comment on above: Performed By: #### M DW, CBC, GFR, TROPHS, CMP, LIP, ANEU, ADIFF #### [address] [address] Monocyte, Absolute 1.0 10 3/mcL Normal 0.2-1.0 [facility] ([place]) Comment on above: Performed By: #### M DW, CBC, GFR, TROPHS, CMP, LIP, ANEU, ADIFF #### [address] [address] Monocytes/100 WBC (Bld) 15.1 % High 1.7-13.0 [facility] ([place]) Comment on above: Performed By: #### M DW, CBC, GFR, TROPHS, CMP, LIP, ANEU, ADIFF #### [address] [address] Neutrophils/100 WBC (Bld) 64.8 % Normal 37.0-80.0 [facility] ([place]) Comment on above: Performed By: #### M DW, CBC, GFR, TROPHS, CMP, LIP, ANEU, ADIFF #### [address] [address] .GFRon 04-07-2023 GFR 64 ml/min/1.73sqm Normal [facility] ([place]) Comment on above: Result Comment: GFR Population mean for , Non- Americans Ages 20-29 = 116 mL/min/1.73 sq.m. Ages 30-39 = 107 mL/min/1.73 sq.m. Ages 40-49 = 99 mL/min/1.73 sq.m. Ages 50-59 = 93 mL/min/1.73 sq.m. Ages 60-69 = 85 mL/min/1.73 sq.m. Ages 70+ = 75 mL/min/1.73 sq.m. Chronic Kidney Disease: Less than 60 mL/min/1.73 square meters End Stage Renal Disease: Less than 15 mL/min/1.73 square meters Performed By: #### M DW, CBC, GFR, TROPHS, CMP, LIP, ANEU, ADIFF #### [address] [address] GFR Non- 53 ml/min/1.73sqm Normal [facility] ([place]) Comment on above: Result Comment: GFR Population mean for , Non- Americans Ages 20-29 = 116 mL/min/1.73 sq.m. Ages 30-39 = 107 mL/min/1.73 sq.m. Ages 40-49 = 99 mL/min/1.73 sq.m. Ages 50-59 = 93 mL/min/1.73 sq.m. Ages 60-69 = 85 mL/min/1.73 sq.m. Ages 70+ = 75 mL/min/1.73 sq.m. Chronic Kidney Disease: Less than 60 mL/min/1.73 square meters End Stage Renal Disease: Less than 15 mL/min/1.73 square meters Performed By: #### M DW, CBC, GFR, TROPHS, CMP, LIP, ANEU, ADIFF #### [address] [address] .MDWon 04-07-2023 Monocyte Distribution Width 29.76 High 0.00-20.00 [facility] ([place]) Comment on above: Result Comment: For adults in ED, MDW>20.0 may be associated with a higher risk of sepsis during the first 12hrs of hospital admission Performed By: #### M DW, CBC, GFR, TROPHS, CMP, LIP, ANEU, ADIFF #### [address] [address] .NEUABSon 04-07-2023 Neutrophil, Absolute 4.2 10 3/mcL Normal 2.9-6.2 [facility] ([place]) Comment on above: Performed By: #### M DW, CBC, GFR, TROPHS, CMP, LIP, ANEU, ADIFF #### [place] [address] CBCon 04-07-2023 Erythrocyte distribution width (RBC) [Ratio] 13.4 % Normal 11.5-14.5 [facility] ([place]) Comment on above: Performed By: #### M DW, CBC, GFR, TROPHS, CMP, LIP, ANEU, ADIFF #### [place] [address] Hematocrit (Bld) [Volume fraction] 43.4 % Normal 37.0-47.0 [facility] ([place]) Comment on above: Performed By: #### M DW, CBC, GFR, TROPHS, CMP, LIP, ANEU, ADIFF #### [place] [address] Hgb 14.6 G/dL Normal 12.0-16.0 [facility] ([place]) Comment on above: Performed By: #### M DW, CBC, GFR, TROPHS, CMP, LIP, ANEU, ADIFF #### [place] [address] MCH (RBC) [Entitic mass] 31.3 pg High 27.0-31.2 [facility] ([place]) Comment on above: Performed By: #### M DW, CBC, GFR, TROPHS, CMP, LIP, ANEU, ADIFF #### [place] [address] MCHC 33.5 G/dL Normal 33.0-37.0 [facility] ([place]) Comment on above: Performed By: #### M DW, CBC, GFR, TROPHS, CMP, LIP, ANEU, ADIFF #### [address] [address] MCV (RBC) [Entitic vol] 93.2 fL Normal 80.0-94.0 [facility] ([place]) Comment on above: Performed By: #### M DW, CBC, GFR, TROPHS, CMP, LIP, ANEU, ADIFF #### [address] [address] Platelet 305 10 3/mcL Normal 130-400 [facility] ([place]) Comment on above: Performed By: #### M DW, CBC, GFR, TROPHS, CMP, LIP, ANEU, ADIFF #### [address] [address] Platelet mean volume (Bld) [Entitic vol] 7.2 fL Low 7.4-10.4 [facility] ([place]) Comment on above: Performed By: #### M DW, CBC, GFR, TROPHS, CMP, LIP, ANEU, ADIFF #### [address] [address] RBC 4.66 10 6/mcL Normal 4.20-5.40 [facility] ([place]) Comment on above: Performed By: #### M DW, CBC, GFR, TROPHS, CMP, LIP, ANEU, ADIFF #### [address] [address] WBC 6.5 10 3/mcL Normal 4.6-10.8 [facility] ([place]) Comment on above: Performed By: #### M DW, CBC, GFR, TROPHS, CMP, LIP, ANEU, ADIFF #### [address] [address] CMPon 04-07-2023 Albumin Level 3.5 G/dL Normal 3.4-4.8 [facility] ([place]) Comment on above: Performed By: #### M DW, CBC, GFR, TROPHS, CMP, LIP, ANEU, ADIFF #### [address] [address] Albumin/Globulin [Mass ratio] 0.9 {ratio} Low 1.1-2.5 [facility] ([place]) Comment on above: Performed By: #### M DW, CBC, GFR, TROPHS, CMP, LIP, ANEU, ADIFF #### [address] [address] ALP [Catalytic activity/Vol] 139 U/L High 40-135 [facility] ([place]) Comment on above: Performed By: #### M DW, CBC, GFR, TROPHS, CMP, LIP, ANEU, ADIFF #### [address] [address] ALT [Catalytic activity/Vol] 21 U/L Normal 14-59 [facility] ([place]) Comment on above: Performed By: #### M DW, CBC, GFR, TROPHS, CMP, LIP, ANEU, ADIFF #### [address] [address] AST [Catalytic activity/Vol] 16 U/L Normal 10-40 [facility] ([place]) Comment on above: Performed By: #### M DW, CBC, GFR, TROPHS, CMP, LIP, ANEU, ADIFF #### [address] [address] Bili Total 0.5 mg/dL Normal 0.2-1.0 [facility] ([place]) Comment on above: Result Comment: Use of this assay is not recommended for patients undergoing treatment with eltrombopag due to the potential for falsely elevated results. Performed By: #### M DW, CBC, GFR, TROPHS, CMP, LIP, ANEU, ADIFF #### [address] [address] BUN/Creatinine Ratio 25 ratio Normal 7-27 [facility] ([place]) Comment on above: Performed By: #### M DW, CBC, GFR, TROPHS, CMP, LIP, ANEU, ADIFF #### [address] [address] Calcium [Mass/Vol] 9.2 mg/dL Normal 8.4-10.2 [facility] ([place]) Comment on above: Performed By: #### M DW, CBC, GFR, TROPHS, CMP, LIP, ANEU, ADIFF #### [address] [address] Chloride [Moles/Vol] 98 mmol/L Normal 98-107 [facility] ([place]) Comment on above: Performed By: #### M DW, CBC, GFR, TROPHS, CMP, LIP, ANEU, ADIFF #### [address] [address] CO2 [Moles/Vol] 32 mmol/L High 23-31 [facility] ([place]) Comment on above: Performed By: #### M DW, CBC, GFR, TROPHS, CMP, LIP, ANEU, ADIFF #### [address] [address] Creatinine [Mass/Vol] 1.04 mg/dL High 0.55-1.02 [facility] ([place]) Comment on above: Performed By: #### M DW, CBC, GFR, TROPHS, CMP, LIP, ANEU, ADIFF #### [address] [address] Electrolyte Balance 6.0 mEq/L Normal 4.0-15.0 [facility] ([place]) Comment on above: Performed By: #### M DW, CBC, GFR, TROPHS, CMP, LIP, ANEU, ADIFF #### [address] [address] Globulin 3.8 G/dL Normal [facility] ([place]) Comment on above: Performed By: #### M DW, CBC, GFR, TROPHS, CMP, LIP, ANEU, ADIFF #### [address] [address] Glucose [Mass/Vol] 136 mg/dL High 80-115 [facility] ([place]) Comment on above: Performed By: #### M DW, CBC, GFR, TROPHS, CMP, LIP, ANEU, ADIFF #### [address] [address] Potassium [Moles/Vol] 3.7 mmol/L Normal 3.5-5.1 [facility] ([place]) Comment on above: Performed By: #### M DW, CBC, GFR, TROPHS, CMP, LIP, ANEU, ADIFF #### [address] [address] Sodium [Moles/Vol] 136 mmol/L Normal 136-145 [facility] ([place]) Comment on above: Performed By: #### M DW, CBC, GFR, TROPHS, CMP, LIP, ANEU, ADIFF #### [address] [address] Total Protein 7.3 G/dL Normal 6.4-8.2 [facility] ([place]) Comment on above: Performed By: #### M DW, CBC, GFR, TROPHS, CMP, LIP, ANEU, ADIFF #### [address] [address] Urea nitrogen [Mass/Vol] 26 mg/dL High 7-18 [facility] ([place]) Comment on above: Performed By: #### M DW, CBC, GFR, TROPHS, CMP, LIP, ANEU, ADIFF #### [address] [address] [address] ABD/PELVIS W/ IV CONTRAST ONLYon 04-07-2023 CT ABD/PELVIS W/ IV CONTRAST ONLY ORIGINAL EXAMINATION: CT OF THE ABDOMEN AND PELVIS WITH CONTRAST04/07/2023 12:16 am TECHNIQUE: CT of the abdomen and pelvis was performed with the administration of intravenous contrast. Multiplanar reformatted images are provided for review. Automated exposure control, iterative reconstruction, and/or weight based adjustment of the mA/kV was utilized to reduce the radiation dose to as low as reasonably achievable. COMPARISON: None HISTORY: ORDERING SYSTEM PROVIDED HISTORY: Reason for Exam: pain FINDINGS: Streak artifact due to patient arm position obscures some details. The liver is unremarkable in contour. No suspicious hepatic lesions. There is no intra or extrahepatic biliary duct dilation. Surgically absent gallbladder. The pancreas, spleen, and bilateral adrenal glands are unremarkable. The kidneys enhance symmetrically without evidence of hydronephrosis or suspicious lesions. The urinary bladder is without wall thickening or focal mass. Surgically absent uterus. Unremarkable appearance of the stomach. Focus of wall thickening and irregularity about the lateral 1st portion of the duodenum, approximately 2.6 x 3.0 cm. Dilated loops of fluid-filled small bowel seen throughout the abdomen consistent with obstruction, transition point favored to be distal small bowel, right lower quadrant. No acute colonic abnormality. No pericecal inflammation. No free air, free fluid, or drainable fluid collection within the abdomen or pelvis. No pathologically enlarged or aggressive appearing lymph nodes. Nonaneurysmal aortoiliac arteries. No acute osseous abnormality. No aggressive appearing osseous lesions. Varying degrees of multifocal degenerative change. No acute abnormality within the partially visualized lower thorax. IMPRESSION: At least moderate grade small bowel obstruction as above. No evidence of perforation. Irregular wall thickening of the 1st portion of the duodenum. Further evaluation with endoscopy is advised when clinically appropriate. I have personally reviewed the images of this examination and agree with the resident's findings and interpretation. Interpreted by: Kirk Lerma MD Preliminary Report By: Joshua Higgins Electronically signed By Kirk Lerma MD Dictated Date: 04/07/2023 12:42:40 AM Prelim Date: 04/07/2023 12:56:24 AM Sign Date: 04/07/2023 2:22:36 AM Ordering Provider: LUCIANA UNDERWOOD Normal [facility]) LIPon 04-07-2023 Lipase Level 14 U/L Low 16-77 [facility]) Comment on above: Performed By: #### M DW, CBC, GFR, TROPHS, CMP, LIP, ANEU, ADIFF #### [address] [address] [facility] 04-07-2023 Troponin I High Sensitivity 7.4 ng/L Normal 0.0-51.4 [facility]) Comment on above: Performed By: #### M DW, CBC, GFR, TROPHS, CMP, LIP, ANEU, ADIFF #### [address] [address] XR CHEST 1 VIEWon 04-07-2023 XR CHEST 1 VIEW ORIGINAL EXAMINATION: ONE XRAY VIEW OF THE CHEST04/07/2023 12:17 am COMPARISON: None. HISTORY: ORDERING SYSTEM PROVIDED HISTORY: Reason for Exam: cp, vomiting FINDINGS: The cardiomediastinal silhouette is unremarkable. There is no florid pulmonary vascular congestion. There is no focal consolidation. No large pleural effusion. No pneumothorax. IMPRESSION: No acute cardiopulmonary process. Preliminary Report was Dictated by a Resident Interpreted by: Kirk Lerma MD Preliminary Report By: Joshua Higgins Electronically signed By Kirk Lerma MD Dictated Date: 04/07/2023 12:57:10 AM Prelim Date: 04/07/2023 12:58:39 AM Sign Date: 04/07/2023 2:24:14 AM Ordering Provider: LUCIANA UNDERWOOD [facility] ([place]) LABORATORYOrdered By: [employer] Android POS SYSTEM on 04-06-2023 Albumin BCP dye [Mass/Vol] 3.5 G/dL Invalid Interpretation Code 3.4 - 4.8 G/dL AO ADM SS Albumin/Globulin [Mass ratio] 0.9 {ratio} Invalid Interpretation Code 1.1 - 2.5 ratio AO ADM SS ALP [Catalytic activity/Vol] 139 U/L Invalid Interpretation Code 40 - 135 U/L AO ADM SS ALT With P-5'-P [Catalytic activity/Vol] 21 U/L Invalid Interpretation Code 14 - 59 U/L AO ADM SS AST With P-5'-P [Catalytic activity/Vol] 16 U/L Invalid Interpretation Code 10 - 40 U/L AO ADM SS Basophil, Absolute 0.0 103/mcL Invalid Interpretation Code 0.0 - 0.2 10^3/mcL AO Workflow SS Basophils/100 WBC (Bld) 0.3 % Invalid Interpretation Code 0.0 - 2.5 % AO Workflow SS Bilirubin [Mass/Vol] 0.5 mg/dL Invalid Interpretation Code 0.2 - 1.0 mg/dL AO ADM SS Comment on above: Interpretive Data: U se of this assay is not recommended for patients undergoing treatment with eltrombopag due to the potential for falsely elevated results. Calcium [Mass/Vol] 9.2 mg/dL Invalid Interpretation Code 8.4 - 10.2 mg/dL AO ADM SS Chloride [Moles/Vol] 98 mmol/L Invalid Interpretation Code 98 - 107 mmol/L AO ADM SS CO2 [Moles/Vol] 32 mmol/L Invalid Interpretation Code 23 - 31 mmol/L AO ADM SS Creatinine [Mass/Vol] 1.04 mg/dL Invalid Interpretation Code 0.55 - 1.02 mg/dL AO ADM SS Electrolyte Balance 6.0 mEq/L Invalid Interpretation Code 4.0 - 15.0 mEq/L AO ADM SS Eosinophil, Absolute 0.1 103/mcL Invalid Interpretation Code 0.0 - 0.4 10^3/mcL AO Workflow SS Eosinophils/100 WBC (Bld) 0.9 % Invalid Interpretation Code 0.0 - 7.0 % AO Workflow SS Erythrocyte distribution width (RBC) [Ratio] 13.4 % Invalid Interpretation Code 11.5 - 14.5 % AO Workflow SS GFR/1.73 sq M.predicted among blacks MDRD (S/P/Bld) [Vol rate/Area] 64 ml/min/1.73sqm Invalid Interpretation Code AO Chemistry S Comment on above: Interpretive Data: GFR Population mean for , Non- Americans Ages 20-29 = 116 mL/min/1.73 sq.m. Ages 30-39 = 107 mL/min/1.73 sq.m. Ages 40-49 = 99 mL/min/1.73 sq.m. Ages 50-59 = 93 mL/min/1.73 sq.m. Ages 60-69 = 85 mL/min/1.73 sq.m. Ages 70+ = 75 mL/min/1.73 sq.m. Chronic Kidney Disease: Less than 60 mL/min/1.73 square meters End Stage Renal Disease: Less than 15 mL/min/1.73 square meters GFR/1.73 sq M.predicted among non-blacks MDRD (S/P/Bld) [Vol rate/Area] 53 ml/min/1.73sqm Invalid Interpretation Code AO Chemistry S Comment on above: Interpretive Data: GFR Population mean for , Non- Americans Ages 20-29 = 116 mL/min/1.73 sq.m. Ages 30-39 = 107 mL/min/1.73 sq.m. Ages 40-49 = 99 mL/min/1.73 sq.m. Ages 50-59 = 93 mL/min/1.73 sq.m. Ages 60-69 = 85 mL/min/1.73 sq.m. Ages 70+ = 75 mL/min/1.73 sq.m. Chronic Kidney Disease: Less than 60 mL/min/1.73 square meters End Stage Renal Disease: Less than 15 mL/min/1.73 square meters Globulin 3.8 G/dL Invalid Interpretation Code AO ADM SS Glucose [Mass/Vol] 136 mg/dL Invalid Interpretation Code 80 - 115 mg/dL AO ADM SS Hematocrit (Bld) [Volume fraction] 43.4 % Invalid Interpretation Code 37.0 - 47.0 % AO Workflow SS Hemoglobin (Bld) [Mass/Vol] 14.6 G/dL Invalid Interpretation Code 12.0 - 16.0 G/dL AO Workflow SS Lipase [Catalytic activity/Vol] 14 U/L Invalid Interpretation Code 16 - 77 U/L AO ADM SS Lymphocyte, Absolute 1.2 103/mcL Invalid Interpretation Code 0.8 - 3.9 10^3/mcL AO Workflow SS Lymphocytes/100 WBC (Bld) 18.9 % Invalid Interpretation Code 10.0 - 50.0 % AO Workflow SS MCH (RBC) [Entitic mass] 31.3 pg Invalid Interpretation Code 27.0 - 31.2 pg AO Workflow SS MCHC 33.5 G/dL Invalid Interpretation Code 33.0 - 37.0 G/dL AO Workflow SS MCV (RBC) [Entitic vol] 93.2 fL Invalid Interpretation Code 80.0 - 94.0 fL AO Workflow SS Monocyte distribution width Auto (Bld) [Entitic vol] 29.76 1 Invalid Interpretation Code 0.00 - 20.00 AO Workflow SS Comment on above: Result Comment: For adults in ED, MDW>20.0 may be associated with a higher risk of sepsis during the first 12hrs of hospital admission Monocyte, Absolute 1.0 103/mcL Invalid Interpretation Code 0.2 - 1.0 10^3/mcL AO Workflow SS Monocytes/100 WBC (Bld) 15.1 % Invalid Interpretation Code 1.7 - 13.0 % AO Workflow SS Neutrophil, Absolute 4.2 103/mcL Invalid Interpretation Code 2.9 - 6.2 10^3/mcL AO Workflow SS Neutrophils/100 WBC (Bld) 64.8 % Invalid Interpretation Code 37.0 - 80.0 % AO Workflow SS Platelet mean volume (Bld) [Entitic vol] 7.2 fL Invalid Interpretation Code 7.4 - 10.4 fL AO Workflow SS Platelets (Bld) [#/Vol] 305 103/mcL Invalid Interpretation Code 130 - 400 10^3/mcL AO Workflow SS Potassium [Moles/Vol] 3.7 mmol/L Invalid Interpretation Code 3.5 - 5.1 mmol/L AO ADM SS Protein [Mass/Vol] 7.3 G/dL Invalid Interpretation Code 6.4 - 8.2 G/dL AO ADM SS RBC (Bld) [#/Vol] 4.66 106/mcL Invalid Interpretation Code 4.20 - 5.40 10^6/mcL AO Workflow SS Sodium [Moles/Vol] 136 mmol/L Invalid Interpretation Code 136 - 145 mmol/L AO ADM SS Troponin I.cardiac DL <= 0.01 ng/mL [Mass/Vol] 7.4 ng/L Invalid Interpretation Code 0.0 - 51.4 ng/L AO ADM SS Urea nitrogen [Mass/Vol] 26 mg/dL Invalid Interpretation Code 7 - 18 mg/dL AO ADM SS Urea nitrogen/Creatinine [Mass ratio] 25 ratio Invalid Interpretation Code 7 - 27 ratio AO ADM SS WBC (Bld) [#/Vol] 6.5 103/mcL Invalid Interpretation Code 4.6 - 10.8 10^3/mcL AO Workflow SS CNCOon 10-11-2021 [facility] HNO ID: [id number] Author: Mammography Coordinator Service: ? Author Type: Physician Type: Letter Filed: 10/12/2021 11:34 PM Note Text: October 11, 2021 PID: [id number] Ninfa Aiken [address] [place] [address] Dear Ms. Aiken, We are pleased to inform you that the results of your recent breast imaging exam on 10/11/2021 are normal. Early detection of cancer is very important. We also understand recommendations regarding breast cancer screening are controversial. Please discuss with your primary care provider which strategy is best for you and whether a mammogram is right for you. Your imaging studies and report will be kept on file at [facility] as part of your permanent medical record and are available for your continuing care. Thank you for allowing us to help in meeting your health care needs. Sincerely, Dr. Zapata Interpreting Radiologist [facility] (Normal over 40) Normal [facility] SCREENINGon 10-11-2021 [facility] SCREENING * * *Final Report* * * DATE OF EXAM: Oct 11 2021 9:43AM GEMINI 0581 - [facility] SCREENING / PROCEDURE REASON: Annual screeening * * * * Physician Interpretation * * * * RESULT: #[id number] - CHANEL SCREENING BILATERAL DIGITAL SCREENING MAMMOGRAM WITH CAD: 10/11/2021 HISTORY: Annual Screeening / Screening Mammogram-Patient reports NO symptoms. /priors available for comparison. RESULT: TECHNIQUE: The study was acquired using full field digital technology and interpreted from soft copy. Current study was also evaluated with a Computer Aided Detection (CAD). Comparison is made to exams dated: 05/14/2017 mammogram, 05/24/2018 mammogram - [facility], and 08/17/2020 mammogram - [facility]. There are scattered fibroglandular elements in both breasts. No significant masses, calcifications, or other findings are seen in either breast. There has been no significant interval change. IMPRESSION: NEGATIVE There is no mammographic evidence of malignancy. A 1 year screening mammogram is recommended. Henri carlton/shannon:10/11/2021 10:48:13 [employer] Driver(s): Caron Romero [facility] letter sent: Normal over 40 Mammogram BI-RADS: 1 Negative Multiple national specialty organizations have released breast cancer screening guidelines for women at average risk for developing breast cancer - guidelines that are based on both evidence and opinion, yet differ on when to start and how often to screen for breast cancer. With representation from Breast Imaging, Internal Medicine, Women's Health, Family Medicine, and Medical/Surgical Oncology, the [facility] has carefully reviewed the data and reached the following consensus: 1) All women should engage in shared decision-making with their providers to decide when to start and how often to screen; 2) All women should have the opportunity to start screening mammography at age 40; 3) For women ages 45-55, we recommend annual screening mammograms; 4) For women ages 55 and over, we support both the transition from an annual to a biennial interval if this aligns more with patient's values and preferences, or continuation with annual screening; 5) All women should discuss with their providers when to stop screening mammograms. Letter Carrier: Shannon Transcribe Date/Time: Oct 11 2021 9:25A Dictated by: HENRI ZAPATA MD This examination was interpreted and the report reviewed and electronically signed by: HENRI ZAPATA MD on Oct 11 2021 10:48AM EST [id number] Normal [facility] Vital Signs Date Time Vital Sign Value Performing Clinician Irene cortés 04-07-2023 04:30-0400 Diastolic Blood Pressure Non-Invasive [address] [facility] 04-07-2023 04:30-0400 Heart rate 105 /min LUCIANA DURESKA DO [facility] 04-07-2023 04:30-0400 Respiratory rate 20 /min LUCIANA DURESKA DO [facility] 04-07-2023 04:30-0400 Systolic Blood Pressure Non-Invasive [address] [facility] 04-07-2023 03:35-0400 Diastolic Blood Pressure Non-Invasive 64 [address] [facility] 04-07-2023 03:35-0400 Heart rate 105 /min LUCIANA DURESKA DO [facility] 04-07-2023 03:35-0400 Respiratory rate 23 /min LUCIANA DURESKA DO [facility] 04-07-2023 03:35-0400 Systolic Blood Pressure Non-Invasive 107 [address] [facility] 04-07-2023 02:44-0400 Diastolic Blood Pressure Non-Invasive 65 [address] [facility] 04-07-2023 02:44-0400 Heart rate 104 /min LUCIANA DURESKA DO [facility] 04-07-2023 02:44-0400 Respiratory rate 16 /min LUCIANA DURESKA DO [facility] 04-07-2023 02:44-0400 Systolic Blood Pressure Non-Invasive 111 [address] [facility] 04-06-2023 22:59-0400 Blood Pressure Location LUCIANA UNDERWOOD DO [facility] 04-06-2023 22:59-0400 Body temperature 98.6 [degF] LUCIANA UNDERWOOD DO [facility] Encounters Encounter Date Encounter Type Care Provider Facility Start: 04-20-2025 ambulatory Suresh Jolly Facility :[facility] Start: 09-19-2024 End: 09-19-2024 ambulatory Shira Thompsoner Facility:[facility] Start: 07-03-2024 End: 07-03-2024 ambulatory mAinta Bedolla Facility:[facility] Start: 06-25-2024 End: 06-25-2024 ambulatory [facility] Facility:[facility] Start: 06-17-2024 End: 06-17-2024 ambulatory Shira Wells Facility:[facility] Start: 04-07-2023 End: 04-07-2023 Emergency department patient visit SHIRA WELLS Facility:[facility] Start: 04-06-2023 End: 04-07-2023 Emergency department patient visit LUCIANA UNDERWOOD DO [facility] Payers Date Payer Category Payer Self-pay 2023 Private Health Insurance [id number] 2023 Private Health Insurance [id number] 1955 Unknown [id number] Unknown [id number] Unknown [id number] 2.16.8 [id number] Unknown [id number] .16.8 [id number] Unknown [id number] 2.16.8 [id number] Unknown [id number] 2.16.8 [id number] Social History Date Type Detail Facility Tobacco smoking status No Smoking Status Entered [facility] Sex Assigned At Female [facility] Functional Status Date Assessment Result [facility] 04-07-2023 Functional Status Activity Khurram giraldo Moderate assistance [facility] 04-07-2023 Functional Status Standard Safet y ID band on, Call device within reach, Bed in low position, Wheels locked, Safety level maintained [facility] 04-07-2023 Functional Status Adequate room lighting, Bed in low position, Call device within reach, Non-Slip footwear, Patient specific safety measures, Traffic path in room free of clutter, Upper/Half length side rails for bed mobility, Wheels locked [facility] 04-06-2023 Functional Status N/A [facility] Mental Status Date Assessment Result [facility] 04-07-2023 Mental Status Orientation Not oriented to person, Not oriented to situation [facility] 04-06-2023 Mental Status [facility] Discharge instructions 04-07-2023 Note Date & Type Note Facility 04-07-2023 Hospital Discharg e instructions Patient Education 04/07/2023 04:05:29 Small Bowel Obstruction Small Bowel Obstruction Small bowel obstruction can lead to tissue damage and even tissue . A small bowel obstruction occurs when part or all of the small intestine (bowel) is blocked. As a result, digestive contents can t move through the bowel properly and out of the body. Treatment is needed right away to remove the blockage. This can ease painful symptoms. It can also prevent serious problems, such as tissue or bursting (rupture) of the small bowel. Without treatment, a small bowel obstruction can be fatal. Causes of small bowel obstruction A small bowel obstruction can be caused by: Scar tissue (adhesions). These may form after belly (abdominal) surgery or an infection. Hernia. A hernia is when an organ pushes through a weak spot or tear in the abdomen wall. Part of the small bowel can push out and be seen as a bulge under the belly. Hernias can also occur internally. Certain health problems. These include when part of the bowel slides inside another part (intussusception). Other causes include irritable bowel disease such as Crohn s disease, and inflammation and sores in the intestine (ulcerative colitis). Abnormal tissue growths (tumors). These can form on the inside or outside of the small bowel. They are usually due to cancer. Symptoms of small bowel obstruction Common symptoms include: Belly cramping and pain Belly swelling and bloating Upset stomach (nausea) and vomiting Can't pass gas Can't pass stool (constipation) Diarrhea Diagnosing small bowel obstruction Your provider will ask about your symptoms and health history. You ll also have a physical exam. Tests may also be done to confirm the problem. These can include: Imaging tests. These provide pictures of the small bowel. Common tests include X-rays and a CT scan. Blood tests. These check for infection and other problems, such as excess fluid loss (dehydration). Upper GI (gastrointestinal) series with a small bowel follow-through. This test takes X-rays of the upper digestive tract from the mouth through the small bowel. An X-ray dye (contrast fluid) is used. The dye coats the inside of your upper digestive tract so it will show up clearly on X-rays. Treating small bowel obstruction Treatment takes place in a hospital. As part of your care, the following may be done: No food or drink is given by mouth. This allows your bowels to rest. An IV (intravenous) line is placed in a vein in your arm or hand. The IV line is used to give fluids. It may also be used to give medicines. These may be needed to ease pain, nausea, and other symptoms. They may also be needed to treat or prevent infections. A soft, thin, flexible tube (nasogastric tube) is inserted through your nose and into your stomach. The tube is used to remove extra gas and fluid in your stomach and bowels. This helps to ease symptoms such as pain and swelling. In severe cases, surgery is done. This may be needed if the small bowel is almost or totally blocked, or there is a hole in the bowel (bowel perforation). During surgery, the blockage is removed. Parts of the bowel may also be removed if there is tissue . Other repair may be done as well, depending on what caused the blockage. Your healthcare provider will give you more information about surgery, if needed. You ll be watched closely in the hospital until your symptoms improve. Your provider will tell you when you can go home. Long-term concerns After treatment, most people recover with no lasting effects. If a long part of the bowel is removed, there is a greater chance for lifelong digestive problems. Bowel movements may become irregular. Work with your provider to learn the best ways to manage any symptoms you may have, and to protect your health. When to call your healthcare provider Call your provider right away if you have any of the following: Severe pain (call 911) Belly swelling or cramping that won t go away Can t pass stool or gas Nausea or vomiting (especially if the vomit looks or smells like stool) [phone] [employer]. [address] [place] [address]. All rights reserved. This information is not intended as a substitute for professional medical care. Always follow your healthcare professional's instructions. Follow Up Care 04/06/2023 22:50:01 With:SHIRA WELLS MD Address: [address] [place], [place] [id number]- When:2-[address] [facility] Clinical Note 04-07-2023 Note Date & Type Note Facility 04-07-2023 Note Discharge Instructions Thank you for allowing [place] to assist you with your healthcare needs. The following is important discharge information regarding your hospital visit. Diagnosis from Today's Visit Abdominal pain What to Do Next Instructions from Your Care Team No qualifying data available. Post Acute Orders No qualifying data available. You Need to Schedule the Following Appointments Follow Up with SHIRA WELLS MD When Within 2-4 days Where: [place] [address]- Allergies Bactrim Depakote Librium lithium penicillin Medications Please ask your primary doctor or pharmacist before taking any other medication not listed, including over the counter drugs, herbal medications, vitamins and or supplements as they may interact with your home medications. Please take this list to your next doctor s visit. Bring all medications you take, including over the counter medications, herbals and other supplements with you to your doctor s visit. Patients and families are reminded to discard old lists and to update any records with all medication providers or retail pharmacies. Education Materials Small Bowel Obstruction Small bowel obstruction can lead to tissue damage and even tissue . A small bowel obstruction occurs when part or all of the small intestine (bowel) is blocked. As a result, digestive contents can t move through the bowel properly and out of the body. Treatment is needed right away to remove the blockage. This can ease painful symptoms. It can also prevent serious problems, such as tissue or bursting (rupture) of the small bowel. Without treatment, a small bowel obstruction can be fatal. Causes of small bowel obstruction A small bowel obstruction can be caused by: Scar tissue (adhesions). These may form after belly (abdominal) surgery or an infection. Hernia. A hernia is when an organ pushes through a weak spot or tear in the abdomen wall. Part of the small bowel can push out and be seen as a bulge under the belly. Hernias can also occur internally. Certain health problems. These include when part of the bowel slides inside another part (intussusception). Other causes include irritable bowel disease such as Crohn s disease, and inflammation and sores in the intestine (ulcerative colitis). Abnormal tissue growths (tumors). These can form on the inside or outside of the small bowel. They are usually due to cancer. Symptoms of small bowel obstruction Common symptoms include: Belly cramping and pain Belly swelling and bloating Upset stomach (nausea) and vomiting Can't pass gas Can't pass stool (constipation) Diarrhea Diagnosing small bowel obstruction Your provider will ask about your symptoms and health history. You ll also have a physical exam. Tests may also be done to confirm the problem. These can include: Imaging tests. These provide pictures of the small bowel. Common tests include X-rays and a CT scan. Blood tests. These check for infection and other problems, such as excess fluid loss (dehydration). Upper GI (gastrointestinal) series with a small bowel follow-through. This test takes X-rays of the upper digestive tract from the mouth through the small bowel. An X-ray dye (contrast fluid) is used. The dye coats the inside of your upper digestive tract so it will show up clearly on X-rays. Treating small bowel obstruction Treatment takes place in a hospital. As part of your care, the following may be done: No food or drink is given by mouth. This allows your bowels to rest. An IV (intravenous) line is placed in a vein in your arm or hand. The IV line is used to give fluids. It may also be used to give medicines. These may be needed to ease pain, nausea, and other symptoms. They may also be needed to treat or prevent infections. A soft, thin, flexible tube (nasogastric tube) is inserted through your nose and into your stomach. The tube is used to remove extra gas and fluid in your stomach and bowels. This helps to ease symptoms such as pain and swelling. In severe cases, surgery is done. This may be needed if the small bowel is almost or totally blocked, or there is a hole in the bowel (bowel perforation). During surgery, the blockage is removed. Parts of the bowel may also be removed if there is tissue . Other repair may be done as well, depending on what caused the blockage. Your healthcare provider will give you more information about surgery, if needed. You ll be watched closely in the hospital until your symptoms improve. Your provider will tell you when you can go home. Long-term concerns After treatment, most people recover with no lasting effects. If a long part of the bowel is removed, there is a greater chance for lifelong digestive problems. Bowel movements may become irregular. Work with your provider to learn the best ways to manage any symptoms you may have, and to protect your health. When to call your healthcare provider Call your provider right away if you have any of the following: Severe pain (call 911) Belly swelling or cramping that won t go away Can t pass stool or gas Nausea or vomiting (especially if the vomit looks or smells like stool) [phone] [employer]. [address] [facility], [place] [address]. All rights reserved. This information is not intended as a substitute for professional medical care. Always follow your healthcare professional's instructions. Additional Information VACCINATE! IT SAVES LIVES! Members of the community who have not yet received the COVID-19 vaccine and would like to receive it can visit one of [facility] vaccine clinics. There are many vaccine clinic locations within the [facility]. For locations and available times, please visit www.gettheshot.coronavirus.[place].gov/. It is important to note that some COVID mobile vaccine clinics are held outdoors and may be canceled in rainy or stormy conditions. To learn more about pediatric vaccinations (ages 5-11), we invite you to visit the [employer] [facility] webpage. https://www.[employer].org/pages/2 176-Iofha-Webqqysszzr-Frequently-Asked -Questions.html To learn more about the COVID-19 vaccine, we invite you to visit the CDC website for a list of frequently asked questions. https://www.cdc.gov/coronavirus/2019-n cov/vaccines/faq.html [facility] Patient Portal Access Instructions: Stay connected with your healthcare team and access your personal medical information anytime with the [facility] Patient Portal. If you would like a full copy of your medical records please contact the [facility] Medical Records Department Sunday through Sunday between 8a.m. and 4:30p.m. Please follow the directions below to access the portal: 1.Access the email account you provided upon registration to the hospital.2.Look for an invitation email from [facility].3.Open the email and access the invitation link: Accept Invitation to [facility]4.Fill in the required tracey to create your account. Sign into [email or web address] with your username and password that you created in the above steps to stay up to date. You can then view a summary of results, a summary of your visits, and the ability to download your summaries to your computer or send the information securely to a physician. Remember that your healthcare information is confidential, so carefully consider who you will allow to register on the [facility] Patient Portal for access to your information. You can also access the [facility] Patient Portal on the [employer] maryann. Simply click on Health Records under Health Data and then click on the [employer] logo. HOW TO SAFELY DISPOSE OF PRESCRIPTION MEDICATIONS Please use one of the following methods to safely dispose of your unused medications. 1.Use a drug disposal kit: the drug disposal pouch allows you to safely discard your old and unused drugs. Ask your nurse to give you one when you are discharged.2.Visit a local take-back location: Many local pharmacies and police departments have programs that collect old and unwanted prescription drugs. Call your local pharmacy or go to http://[employer].[facility]/0R9Ft3y to find one close to you.3.Make use of household items: Use cat litter or old coffee grounds to dispose medications if other options are not available. Mix your drugs with these household products, seal them in an airtight container and throw it into the garbage. Call [facility]: [phone] to be sure your drugs can be disposed of in this way. Some medicines may require a different approach.4.Never flush your medications down the toilet. IF YOU HAVE BEEN PRESCRIBED AN OPIOIDS FOR PAIN If you have been prescribed an opioid (such as hydrocodone, oxycodone or morphine), it is critical to understand the possible side effects and risks of opioid pain medications. Even when taken as directed, opioids can have several side effects including: Tolerance, meaning you might need to take more of a medication for the same pain relief. Nausea, vomiting and/or constipation. Sleepiness, dizziness, dry mouth, confusion, depression or itching. Physical dependence, meaning you have withdrawal symptoms when a medication is stopped ? this can develop within a few days. KNOW YOUR RESPONSIBILITIES It is important to know exactly how much and how often to take the opioid pain medications you are prescribed. Never take opioids in higher amounts or more often than prescribed. Do not combine opioids with alcohol or other drugs that cause drowsiness, such as benzodiazepines, also known as benzos, including diazepam and alprazolam, muscle relaxants or sleep aids. Never sell or share prescription opioids. This is illegal. Store opioids in a secure place and out of reach of others (including children, family, friends and visitors). The last page(s) of this document has been signed and retained as a CHART COPY Signatures Patient Education Materials Small Bowel Obstruction Medication Leaflets My discharge plan and instructions have been reviewed and explained to me and IMILLIE MARJORY J understand my current condition and have read and understand these discharge instructions. I have received a written copy of the plan/instructions. If I have questions, I am aware that I should contact my doctor. Patient/Clinical Program Consultant Signature: _ Date/Time: Relationship to Patient: Witness Name/Signature: Date/Time: [facility] Clinical Note 04-07-2023 Note Date & Type Note Facility 04-07-2023 Note ORIGINAL EXAMINATION: ONE XRAY VIEW OF THE CHEST04/07/2023 12:17 am COMPARISON: None. HISTORY: ORDERING SYSTEM PROVIDED HISTORY: Reason for Exam: cp, vomiting FINDINGS: The cardiomediastinal silhouette is unremarkable. There is no florid pulmonary vascular congestion. There is no focal consolidation. No large pleural effusion. No pneumothorax. IMPRESSION: No acute cardiopulmonary process. Preliminary Report was Dictated by a Resident Interpreted by: Kirk Lerma MD Preliminary Report By: Joshua Higgins Electronically signed By Kirk Lerma MD Dictated Date: 04/07/2023 12:57:10 AM Prelim Date: 04/07/2023 12:58:39 AM Sign Date: 04/07/2023 2:24:14 AM Ordering Provider: LUCIANA UNDERWOOD [facility] Clinical Note 04-07-2023 Note Date & Type Note Facility 04-07-2023 Note ORIGINAL EXAMINATION: CT OF THE ABDOMEN AND PELVIS WITH CONTRAST04/07/2023 12:16 am TECHNIQUE: CT of the abdomen and pelvis was performed with the administration of intravenous contrast. Multiplanar reformatted images are provided for review. Automated exposure control, iterative reconstruction, and/or weight based adjustment of the mA/kV was utilized to reduce the radiation dose to as low as reasonably achievable. COMPARISON: None HISTORY: ORDERING SYSTEM PROVIDED HISTORY: Reason for Exam: pain FINDINGS: Streak artifact due to patient arm position obscures some details. The liver is unremarkable in contour. No suspicious hepatic lesions. There is no intra or extrahepatic biliary duct dilation. Surgically absent gallbladder. The pancreas, spleen, and bilateral adrenal glands are unremarkable. The kidneys enhance symmetrically without evidence of hydronephrosis or suspicious lesions. The urinary bladder is without wall thickening or focal mass. Surgically absent uterus. Unremarkable appearance of the stomach. Focus of wall thickening and irregularity about the lateral 1st portion of the duodenum, approximately 2.6 x 3.0 cm. Dilated loops of fluid-filled small bowel seen throughout the abdomen consistent with obstruction, transition point favored to be distal small bowel, right lower quadrant. No acute colonic abnormality. No pericecal inflammation. No free air, free fluid, or drainable fluid collection within the abdomen or pelvis. No pathologically enlarged or aggressive appearing lymph nodes. Nonaneurysmal aortoiliac arteries. No acute osseous abnormality. No aggressive appearing osseous lesions. Varying degrees of multifocal degenerative change. No acute abnormality within the partially visualized lower thorax. IMPRESSION: At least moderate grade small bowel obstruction as above. No evidence of perforation. Irregular wall thickening of the 1st portion of the duodenum. Further evaluation with endoscopy is advised when clinically appropriate. I have personally reviewed the images of this examination and agree with the resident's findings and interpretation. Interpreted by: Kirk Lerma MD Preliminary Report By: Joshua Higgins Electronically signed By Kirk Lerma MD Dictated Date: 04/07/2023 12:42:40 AM Prelim Date: 04/07/2023 12:56:24 AM Sign Date: 04/07/2023 2:22:36 AM Ordering Provider: LUCIANA UNDERWOOD [facility] Clinical Note 04-06-2023 Note Date & Type Note Facility 04-06-2023 Note Sinus tachycardia Incomplete right bundle branch block Anterolateral infarct, age indeterminate Electronic Signature: LUCIANA UNDERWOOD DO 04/06/2023 23:03:48 [facility] Progress note 10-11-2021 Note Date & Type Note Facility 10-11-2021 Note HNO ID: [id number] Author: Caron Romero RT(R) Service: ? Author Type: Technologist Type: Progress Notes Filed: 10/11/2021 9:40 AM Note Text: Radiology Service Progress Note PATIENT NAME: Ninfa Aiken DATE OF SERVICE: October 11, 2021 TIME: 9:18 AM PATIENT IDENTITY VERIFICATION COMPLETED USING TWO (2) IDENTIFIERS: Name and Date of confirmed by patient verbally. FALL SCREENING: Has the patient had 2 falls in the last year or 1 fall with injury or currently using an Ambulatory Assistive Device (Walker, Cane, Wheelchair, Crutches, etc.)? No PATIENT GENDER DATA: Female. status: : No status: NO. PATIENT RELEVANT IMPLANT DATA REVIEWED: Not Applicable RADIOLOGY DEPARTMENT: Mammography PERIPHERAL IV DATA: Not applicable SIGNED BY: RT Nancy(R) October 11, 2021 9:18 AM [facility] Evaluation + Plan note Note Date & Type Note Facility Evaluation + Plan note No data available for this section [facility] Summary Purpose Family History No Family History Records Found No data available for this section No Family History Records FoundNo Family History Records Found Advance Directives No Advanced Directives Records FoundNo Advanced Directives Records FoundNo Advanced Directives Records Found Additional Source Comments INFORMATION SOURCE (unrecogn ized section and content) DATE CREATED AUTHOR 11/16/2021 [facility] DATE CREATED AUTHOR AUTHOR'S ORGANIZ ATION 06/04/2023 [facility] ([place]) DATE CREATED AUTHOR AUTHOR'S ORGANIZ ATION 04/18/2025 [facility] Patient Care team informatio n (unrecognized section and content) Care Team Personnel Name: SHIRA WELLS MD Member Role: Primary Care Physician Address: Address: [address] [address] Name: Claudia Bradley RN Position: AO RN Member Role: ED RN Name: LUCIANA UNDERWOOD DO Position: ED Physician Member Role: ED Physician Address: Address: [address] [place] [address] [facility] [place], [place] [address] Name: Dominique Yost RN Position: ED RN Member Role: ED RN FOR RECORDS PERTAINING TO PATIENTS WHO ARE OR HAVE BEEN ENROLLED IN A CHEMICAL DEPENDENCY/SUBSTANCEABUSE PROGRAM, SOME INFORMATION MAY BE OMITTED. This clinical summary was aggregated from multiple sources. Caution should be exercised in using it in the provision of clinical care. This summary normalizes information from multiple sources, and as a consequence, information in this document may materially change the coding, format and clinical context of patient data. In addition, data may be omitted in some cases. CLINICAL DECISIONS SHOULD BE BASED ON THE PRIMARY CLINICAL RECORDS. [facility]. provides no warranty or guarantee of the accuracy or completeness of information in this document.
--- NOTE | 2025-04-20 09:41 | PCM.PRE.AN2 ---
ASA Classification* ASA Classification ASA Classification: 3 Assessment & Plan Anesthesia* Anesthesia Assessment Anesthesia Assessment: Discussed sedation and/or anesthesia options, risks, benefits, and alternatives with patient/parents/legal guardian/POA. Questions invited. The patient/parents/legal guardian/POA seems to understand and agrees to proceed with anesthesia plan. Reviewed the physical assessment, medical history, allergy history and patient home medications list prior to surgery/procedure/anesthetic and documented any changes. Performed airway and anesthesia risk assessments. Anesthesia Type Anesthesia Type: MAC History Source History Obtained from:: Patient, Chart and Parent/ Guardian Anesthesia Focused Assessment* Temperature: 97.7 F Pulse Rate: 80 Blood Pressure: 119/91 Respiratory Rate: 14 Pulse Ox: 94 Oxygen Delivery Method: Room Air Airway Assessment Mouth opens: 2 cm Mallampati Score: III Teeth Condition: Chipped/Broken Neck Range of motion (ROM): Full ROM Labs Anesthesia Preop lab: CBC CHEMISTRY COAG Pre-Assessment Diagnosis/Proposed Procedure Planned Operative Procedure(s): COLONOSCOPY Anesthesia History Anesthesia History - ad compositor: Anesthesia History - ad compositor Hx Hospitalization No 02/20/25 08:08 Any Problems With Anesthesia No 02/20/25 08:08 Cholinesterase deficiency No 02/20/25 08:08 You/Your Family Experience No 02/20/25 08:08 fever (hyperthermia) with Relationship Recent Exposure to Contagious No 04/20/25 08:51 Disease Does patient have nerve No 02/20/25 08:08 stimulator Patient instructed to have device shut off --Does patient have Pacemaker No 04/20/25 08:51 or ICD? When Was Last Pacemaker Check QUESTION #4 FULL TEXT: You/Your Family Experience fever (hyperthermia) with Anesthesia Last Oral Intake Last Oral intake: Last Oral Intake NPO since 00:00 04/20/25 08:51 Meds taken in AM with sips of Yes 04/20/25 08:51 water? Meds patient instructed to take am of surgery PONV PONV - ad compositor: PONV - ad compositor Female Yes 02/20/25 08:08 HX of Motion Sickness No 02/20/25 08:08 HX of N/V After Surgery No 02/20/25 08:08 Non-Smoker Yes 02/20/25 08:08 Duration of Surgery greater No 02/20/25 08:08 than 60 minutes Number of Risk Factors 2 02/20/25 08:08 PONV Score Moderate Risk 02/20/25 08:08 Height & Weight Height & Weight: Anesthesia: Height & Weight Height 5 ft 8 in 04/20/25 08:51 Weight: 94 kg 04/20/25 08:51 Body Mass Index (BMI) 31.5 04/20/25 08:51 Respiratory Assessment Respiratory Assessment - ad compositor: Respiratory Tract Infection Hx - ad compositor Hx Respiratory Tract Infection No 02/20/25 08:08 STOP Sleep Apnea STOP Sleep Apnea - ad compositor: STOP Sleep Apnea - ad compositor Hx Hypertension No 02/20/25 08:08 Hx Sleep Apnea No 02/20/25 08:08 CPAP No 02/20/25 08:08 BIPAP No 02/20/25 08:08 Do you snore loudly (louder No 02/20/25 08:08 than talking or can be heard Do you often feel tired/ No 02/20/25 08:08 fatigued/ sleepy during daytime? Has anyone observed you stop No 02/20/25 08:08 breathing during sleep? STOP Results Negative 02/20/25 08:08 QUESTION #5 FULL TEXT : Do you snore loudly (louder than talking or can be heard through closed doors)? 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 Specify any problems Hx of Preganancy in last 3 No 02/20/25 08:08 Months Nurse Filling Out Transfusion DSCHRIBER 02/20/25 08:08 & Questions: Date: 02/20/25 02/20/25 08:08 Time: 08:14 02/20/25 08:08 Patient unable to answer at this time (ie. confused, unrespo /Reproduction History /Reproductive History - ad compositor: /Reproductive Hx- ad compositor Hx Now No 02/20/25 08:08 Gestational Age (in weeks): EDC: Hx Hx Para Hx Section SAB No 02/20/25 08:08 Active Medications Active Medications: Current Medications Generic Name Dose Route Start Last Admin Trade Name Freq PRN Reason Stop Dose Admin Lactated Ringer's 1,000 mls @ 15 mls/hr 04/20/25 08:45 04/20/25 09:14 IV 15 mls/hr .Q48H J LUIS Administration PFSH Medical History Arthritis Uses wheelchair Chronic pain Gastroparesis Migraine headache PVD (peripheral vascular disease) Injury of head and neck History of IBS Gastric reflux Non-smoker COPD (chronic obstructive pulmonary disease) Diabetes AD (Alzheimer's disease) Depression Anxiety Bipolar disorder Schizophrenia Alert and oriented Lives in [place] [facility] Home Medications ?Medication ?Instructions ?Recorded ?Last Taken ?Type aspirin 81 mg chewable tablet 81 mg PO DAILY@0800 11/07/15 Unknown History Held on 02/20/25. Instructions: MD Ordered atorvastatin 20 mg tablet 20 mg PO QHS 11/07/15 Unknown History duloxetine 60 mg capsule,delayed 60 mg PO QHS 11/07/15 04/19/25 History release ergocalciferol (vitamin D2) 1,250 50,000 unit PO WE 11/07/15 Unknown History mcg (50,000 unit) capsule (Vitamin D2) lamotrigine 100 mg tablet 100 mg PO BID 11/07/15 04/20/25 History acetaminophen 650 mg 650 mg PO Q4H PRN PRN Pain 05/13/16 Unknown History tablet,extended release (Tylenol Arthritis Pain) bisacodyl 10 mg rectal suppository 10 mg RECTAL DAILY PRN PRN 05/13/16 Unknown History Constipation bisacodyl 5 mg tablet,delayed 5 mg PO DAILY CONSTIPATION 05/13/16 Unknown History release magnesium hydroxide 400 mg/5 mL 30 ml PO DAILY PRN PRN Constipation 05/13/16 Unknown History oral suspension amantadine HCl 100 mg tablet 100 mg PO BID 06/17/24 04/20/25 History calcium polycarbophil 625 mg 625 mg PO QDAY 06/17/24 Unknown History tablet (FiberCon) Held on 02/20/25. Instructions: MD Ordered clozapine 100 mg tablet 100 mg PO HS 06/17/24 04/19/25 History clozapine 50 mg tablet (Clozaril) 50 mg PO QAM 06/17/24 04/20/25 History d-mannose 500 mg capsule (AZO 600 mg PO DAILY 06/17/24 04/20/25 History D-Mannose) acetaminophen 325 mg tablet 650 mg PO Q6H 02/20/25 04/20/25 History (Tactinal) clonazepam 0.5 mg tablet 0.5 mg PO TID 02/20/25 04/20/25 History nystatin-triamcinolone 100,000 1 applic topical Q12H PRN PRN 02/20/25 Unknown History unit/g-0.1 % topical cream UNDER BREASTS olanzapine 15 mg tablet 15 mg PO QHS 02/20/25 04/19/25 History ondansetron HCl 4 mg tablet 4 mg PO Q6H PRN PRN nausea and 02/20/25 Unknown History vomiting pantoprazole 40 mg tablet,delayed 40 mg PO DAILY 02/20/25 04/20/25 History release sennosides 8.6 mg-docusate sodium 2 tab-cap PO BID 02/20/25 Unknown History 50 mg tablet (Senna Plus) sumatriptan succinate 25 mg tablet 50 mg PO Q2H PRN migraine headache 02/20/25 Unknown History Allergy/AdvReac Type Severity Reaction Status Date / Time chlordiazepoxide HCl (From Allergy Unknown Verified 04/20/25 09:00 Librium) divalproex sodium (From Allergy Unknown Verified 04/20/25 09:00 Depakote) lithium Allergy Unknown Verified 04/20/25 09:00 Penicillins Allergy Unknown Verified 04/20/25 09:00 sulfamethoxazole (From Allergy PT UNSURE Verified 04/20/25 09:00 Bactrim) OF REACTION trimethoprim (From Bactrim) Allergy PT UNSURE Verified 04/20/25 09:00 OF REACTION Social History Smoking Status: Never smoker Review of Systems (Anesthesia) ROS Narrative System reviewed and no additional complaints, except as documented. Physical Exam Const alert Orientation / Consciousness: awake Nutritional Appearance: obese Resp normal respiratory effort and normal air movement Cardio regular rate and regular rhythm
--- NOTE | 2025-04-20 09:45 | COLBX_PTH ---
PATIENT: ALEXUS PINTO LOC: [facility] U#:[id number] AGE/SX: 69/F ROOM: RE04/20/[address]: Dr. Suresh Jolly DO : 1955 BED: DIS: 04/20/2025 SPEC #: [id number] RECD: 04/20/25 11:53 STATUS: RONA REDeepika #: [id number] SABIHA: 04/20/25 09:[address]: Suresh Jolly DEPT: SURGICAL PATHOLOGY RECD BY: Andrei Alexander ENTERED: 04/20/25 13:28 SP TYPE: COLON BX OT DR: Dr. Thee Hugo MD Tissues: A - COLON BIOPSY B - Ascending colon C - Cecum, NOS D - COLON BIOPSY E - SPLENIC FLEXURE F - COLON BIOPSY Procedures: Surgery Specimen Level IV HEADER OPERATION: Colonoscopy, polypectomy, hemostasis PRE-OP DIAGNOSIS: Diarrhea TISSUE SUBMITTED: A- Hepatic flexure polyp biopsy, B- Ascending polyp biopsy, C- Cecal polyp biopsy, D- Ileocecal valve polyp, E- Splenic flexure polyp, F- Random colonic biopsy MICROSCOPIC DIAGNOSIS A. Hepatic flexure, polyp, biopsy: Tubular adenoma . B. Ascending colon, polyp, biopsy: Tubular adenoma. C. Cecum, polyp, biopsy: Tubular adenoma. D. Ileocecal valve, polyp, biopsy: Tubulovillous adenoma, fragmented. E. Splenic flexure, polyp, biopsy: Tubulovillous adenoma, fragmented. F. Colon, random biopsy: No specific pathologic change. MICROSCOPIC DESCRIPTION Slides are reviewed. GROSS DESCRIPTION A. Received in fixative is one container labeled with the patient's name and designated Hepatic flexure polyp. The specimen consists of one irregular fragment of light lucero soft tissue that measures 0.4 cm. The specimen is totally submitted in one cassette. B. Received in fixative is one container labeled with the patient's name and designated Ascending polyp biopsy. The specimen consists of one irregular fragment of light lucero soft tissue, admixed with flocculent material that measures 0.3 cm. The specimen is totally submitted in one cassette. C. Received in fixative is one container labeled with the patient's name and designated Cecal polyp biopsy. The specimen consists of three irregular fragments of light lucero soft tissue that measure 0.3 to 0.4 cm. The specimen is totally submitted in one cassette. D. Received in fixative is one container labeled with the patient's name and designated Ileocecal valve polyp. The specimen consists of multiple irregular fragments of light lucero soft tissue that in aggregate measure 1.7 x 0.6 x 0.2 cm. The specimen is totally submitted in one cassette. E. Received in fixative is one container labeled with the patient's name and designated Splenic flexure polyp. The specimen consists of multiple irregular fragments of light lucero soft tissue that in aggregate measure 1.8 x 0.8 x 0.2. cm. The specimen is totally submitted in one cassette. F. Received in fixative is one container labeled with the patient's name and designated Random colonic biopsy. The specimen consists of three irregular fragments of light lucero soft tissue that measure 0.2 to 0.4 cm. The specimen is totally submitted in one cassette. AL 04/20/2025 CPT:04613b0
--- NOTE | 2025-04-20 10:56 | OP.PROVAT_ITS ---
04/20/2025 Russell Hugo Re : Colonoscopy procedure for Ninfa Aiken [place] This procedure was performed on Sunday, April 20, 2025. My impressions and recommendations are as follows: Impressions : - Preparation of the colon was fair. - Diverticulosis in the sigmoid colon, in the descending colon and at the splenic flexure. - Seven 10 mm polyps at the splenic flexure, at the hepatic flexure, in the ascending colon and in the cecum, removed with a hot snare. Resected and retrieved. - Congested mucosa in the sigmoid colon, in the descending colon, in the transverse colon and in the ascending colon. Biopsied. - One 7 mm polyp in the cecum. Treated with argon plasma coagulation (APC). - One 20 mm polyp in the cecum, removed piecemeal using a hot snare. Resected and retrieved. Clip was placed. 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 Recommendations : - Repeat colonoscopy in 1 year for surveillance. - Continue present medications. My findings are described in the full procedure note, which is enclosed. If I can be of further assistance, please feel free to contact me at . Sincerely, Suresh Jolly, 04/20/2025 10:55:40 AM This report has been signed electronically.
--- NOTE | 2025-04-20 10:56 | OP.COLON_ITS ---
Patient Name: Ninfa Aiken Procedure Date: 04/20/2025 9:57 AM Date of : 1955 Age: 69 Procedure: Colonoscopy Indications: Chronic diarrhea Providers: Suresh Jolly DO Medicines: Monitored Anesthesia Care Patient Profile: This is a 69 year old female. Refer to note in patient chart for documentation of history and physical. Last Colonoscopy: date unknown. Unable to locate last colonoscopy report. Complications: No immediate complications. Procedure: Pre-Anesthesia Assessment: - Prior to the procedure, a History and Physical was performed, and patient medications and allergies were reviewed. The patient is competent. The risks and benefits of the procedure and the sedation options and risks were discussed with the patient. All questions were answered and informed consent was obtained. Patient identification and proposed procedure were verified by the physician in the pre-procedure area. Mental Status Examination: alert and oriented. Airway Examination: normal oropharyngeal airway and neck mobility. Respiratory Examination: clear to auscultation. CV Examination: normal. Prophylactic Antibiotics: The patient does not require prophylactic antibiotics. Prior Anticoagulants: The patient has taken no anticoagulant or antiplatelet agents except for NSAID medication. ASA Grade Assessment: II - A patient with mild systemic disease. After reviewing the risks and benefits, the patient was deemed in satisfactory condition to undergo the procedure. The anesthesia plan was to use monitored anesthesia care (MAC). Immediately prior to administration of medications, the patient was re-assessed for adequacy to receive sedatives. The heart rate, respiratory rate, oxygen saturations, blood pressure, adequacy of pulmonary ventilation, and response to care were monitored throughout the procedure. The physical status of the patient was re-assessed after the procedure. After I obtained informed consent, the scope was passed under direct vision. Throughout the procedure, the patient's blood pressure, pulse, and oxygen saturations were monitored continuously. The Colonoscope was introduced through the anus and advanced to the cecum, identified by appendiceal orifice and ileocecal valve. The colonoscopy was performed without difficulty. The patient tolerated the procedure well. The quality of the bowel preparation was fair. The ileocecal valve, appendiceal orifice, and rectum were photographed. Scope In: 10:09:00 AM Scope Withdrawal Time 0 hours 31 minutes 35 seconds Scope Out: 10:47:41 AM Total Procedure Duration Time 0 hours 38 minutes 41 seconds Findings: The perianal and digital rectal examinations were normal. Multiple small and large-mouthed diverticula were found in the sigmoid colon, descending colon and splenic flexure. Seven sessile polyps were found in the splenic flexure, hepatic flexure, ascending colon and cecum. The polyps were 10 mm in size. These polyps were removed with a hot snare. Resection and retrieval were complete. Verification of patient identification for the specimen was done. Estimated blood loss was minimal. An area of mildly congested mucosa was found in the sigmoid colon, in the descending colon, in the transverse colon and in the ascending colon. Biopsies were taken with a cold forceps for histology. Verification of patient identification for the specimen was done. Estimated blood loss was minimal. A 7 mm polyp was found in the cecum. The polyp was flat. Coagulation for tissue destruction using argon plasma at 0.3 liters/minute and 20 llamas was successful. Estimated blood loss was minimal. A 20 mm polyp was found in the cecum. The polyp was sessile. The polyp was removed with a piecemeal technique using a hot snare. Resection and retrieval were complete. To close a defect after polypectomy, one hemostatic clip was successfully placed. 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 There was no bleeding at the end of the procedure. Stool was found in the rectum, in the recto-sigmoid colon and in the sigmoid colon. Impression: - Preparation of the colon was fair. - Diverticulosis in the sigmoid colon, in the descending colon and at the splenic flexure. - Seven 10 mm polyps at the splenic flexure, at the hepatic flexure, in the ascending colon and in the cecum, removed with a hot snare. Resected and retrieved. - Congested mucosa in the sigmoid colon, in the descending colon, in the transverse colon and in the ascending colon. Biopsied. - One 7 mm polyp in the cecum. Treated with argon plasma coagulation (APC). - One 20 mm polyp in the cecum, removed piecemeal using a hot snare. Resected and retrieved. Clip was placed. 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 Recommendation: - Repeat colonoscopy in 1 year for surveillance. - Continue present medications. Procedure Code(s): --- Professional --- 74503, Colonoscopy, flexible; with ablation of tumor(s), polyp(s), or other lesion(s) (includes pre- and post-dilation and guide wire passage, when performed) 67562, 59, Colonoscopy, flexible; with removal of tumor(s), polyp(s), or other lesion(s) by snare technique 60822, 59, Colonoscopy, flexible; with biopsy, single or multiple CPT copyright 2021 [employer]. All rights reserved. The codes documented in this report are preliminary and upon seam sewer review may be revised to meet current compliance requirements. Suresh Jolly DO 04/20/2025 10:55:40 AM This report has been signed electronically. Number of Addenda: 0 Note Initiated On: 04/20/2025 9:57 AM
--- NOTE | 2025-04-20 10:57 | PCM.POST.ANE ---
Anesthesia: Postop Eval I Current Vital Signs Temperature: 97.6 F Pulse Rate: 70 Blood Pressure: 123/58 Respiratory Rate: 16 Pulse Ox: 100 Oxygen Delivery Method: Room Air Assessment Airway patent: Yes Spontaneous unlabored respirations: Yes Mental status: Awake and Calm nausea: No Vomiting: No Anesthesia Complication: No Fluid Hydration Crystalloid volume administer (ml): 800 Total IV fluid infused: 800 Progress Note Anesthesia document: Postop Eval 1 completed: Yes
--- NOTE | 2025-04-20 11:30 | SUR.PHASEII ---
ATTEMPTED TO CALL [facility] WITH DISCHARGE REPORT BUT NO ANSWER AT THIS TIME. DISCHARGE INFORMATION GIVEN TO FAMILY
== END 2025-04-20 11:41 | disposition home or self-care (01) ==
LOC: EN 08:28 → AC 08:30
PROVIDERS: PCP Family Medicine; Referring Provider Family Medicine; Visit Provider Internal Medicine Gastroenterology
PROC: 0DJD8ZZ Inspection of Lower Intestinal Tract, Via Natural or Artificial Opening Endoscopic (ICD-10-PCS; CPT 45378; principal; 2025-04-20 09:40)
DX: D12.3 Benign neoplasm of transverse colon (principal); G30.9 Alzheimer's disease, unspecified; F02.84 Dementia in other diseases classified elsewhere, unspecified severity, with anxiety; F02.83 Dementia in other diseases classified elsewhere, unspecified severity, with mood disturbance; F02.82 Dementia in other diseases classified elsewhere, unspecified severity, with psychotic disturbance; J44.9 Chronic obstructive pulmonary disease, unspecified; E11.43 Type 2 diabetes mellitus with diabetic autonomic (poly)neuropathy; E11.51 Type 2 diabetes mellitus with diabetic peripheral angiopathy without gangrene; D12.0 Benign neoplasm of cecum; D12.2 Benign neoplasm of ascending colon; K31.84 Gastroparesis; K57.30 Diverticulosis of large intestine without perforation or abscess without bleeding; K21.9 Gastro-esophageal reflux disease without esophagitis; E66.9 Obesity, unspecified; G89.29 Other chronic pain; Z68.31 Body mass index [BMI] 31.0-31.9, adult; G43.909 Migraine, unspecified, not intractable, without status migrainosus; Z79.82 Long term (current) use of aspirin; Z79.899 Other long term (current) drug therapy
CPT/HCPCS: 45388; 45385; 45380; 88305; C1889; J2405